=== PATIENT | male | born 1975 | race Caucasian/White ===

== ENCOUNTER 2020-05-21 14:45 | Outpatient (REF) | payer BC, SELFPAY | END 2020-05-21 14:46 | disposition home or self-care (01) | LOC: HO.LAB 14:45 | PROVIDERS: Visit Provider Internal Medicine | DX: Z20.822 Contact with and (suspected) exposure to COVID-19 (principal) | CPT/HCPCS: 36415; C9803; U0003; U0005 ==

== ENCOUNTER 2020-07-05 09:20 | Emergency (ER) | payer BC, SELFPAY ==
--- NOTE | ~2020-07-05 | US_ITS ---
EXAMINATION: US SOFT TISSUE. CLINICAL INFORMATION: Painful lump. COMPARISON: None. TECHNIQUE: Ultrasound of the right posterior head is performed with high- frequency montoya-scale imaging and color Doppler. FINDINGS: Ultrasound of the area of clinical concern, in the right posterior head, adjacent to the ear, is a relatively anechoic avascular focus measuring 1.4 x 1.7 x 0.8 cm. There is a lymph node seen in this region having a maximal transverse dimension of 1.7 cm. US/US soft tiss head and/or neck IMPRESSION: 1. Relatively anechoic avascular 1.4 x 1.7 x 0.8 cm cystic-appearing focus in the right posterior head adjacent to the ear.This is nonspecific, differential consideration includes infectious process and inflammatory process. 2. Enlarged 1.7 cm lymph node adjacent to the ear.
--- NOTE | ~2020-07-05 | CT_ITS ---
EXAMINATION: CT HEAD WITHOUT CONTRAST CLINICAL INFORMATION: Lump in the right posterior head, question mass versus abscess. COMPARISON: None TECHNIQUE: Contiguous axial imaging was performed from the skull base to vertex without intravenous administration of contrast. This CT examination was performed using dose optimization techniques as appropriate, variously including the following: *Automated exposure control *Adjustment of mA and/or kV according to patient size (this includes techniques or standardized protocols for targeted exams where dose is matched to indication/reason for exam; i.e. extremities or head) *Use of iterative reconstruction technique DLP: 740 mGy-cm FINDINGS: There is no evidence of acute intracranial hemorrhage or territorial infarction. No abnormal mass effect or midline shift is seen. Butler to white matter differentiation is well preserved. No extra-axial fluid collections are identified. The ventricles are normal in size. There is no abnormal attenuation within the brain parenchyma. The osseous structures and soft tissues are normal. The mastoid air cells and visualized portions of the paranasal sinuses are well aerated. There is a soft tissue prominence in the right posterior scalp inferiorly. There is a soft tissue density present in this region, with central area of fatty changes. Images 2:11-16. This focus measures approximately 1.4 x 1.1 x 2 cm. (Transverse, AP, craniocaudal). There is mild stranding otherwise present in this region. This focus is indeterminate on CT. Differential considerations include inflammatory, infectious process. CT/CT head/brain wo con IMPRESSION: 1. No CT evidence of acute intracranial pathology. 2. Soft tissue prominence in the right posterior scalp inferiorly, with soft tissue density and central fatty tissue, measuring approximately 1.4 x 1.1 x 2 cm. Imaging findings are nonspecific. Etiology is not determined. Differential considerations include inflammatory, infectious process. Please clinically correlate and manage.
[2020-07-05 09:31] VITALS: BP 134/88; PULSE 74; RESP 16; TEMP 36.9; O2SAT 98; BMI 30.4
--- NOTE | 2020-07-05 10:16 | ED.SKABFB ---
HPI - Skin/Abscess/Foreign Bdy General Chief complaint: Headache Stated complaint: HEADACHE Time Seen by Provider: 07/05/20 09:29 Source: patient and family () Mode of arrival: ambulatory Limitations: no limitations History of Present Illness HPI narrative: 45-year-old male presenting to the ED with complaints of a lump to the right posterior aspect of his head that developed over the past 3 days. He denies any trauma. He reports approximately 3 days ago he was having a frontal headache and was seen at the urgent care and was given Augmentin and has been taking Augmentin as prescribed for sinus infection although reports the headache has resolved and now he has a lump to the right posterior aspect of his head and despite taking the antibiotics he has no symptomatic relief of this lump. MD complaint: other (Lump) Onset (ago): day(s) (Three days worse today) Tetanus up to date: unsure Location: head Severity: moderate Quality: aching and constant Pain Consistency: constant Relieving factors: none Exacerbating factors: palpation Context: none Associated symptoms: denies other symptoms Treatments prior to arrival: other (Patient reports he has taken multiple [id number] medication and no symptomatic relief and has been taking Augmentin as prescribed and no symptomatic relief) Related Data Previous Rx's Medication Instructions Recorded amoxicillin 875 mg-potassium 1 tab PO BID #20 tab 07/02/20 clavulanate 125 mg tablet prednisone 20 mg tablet 20 mg PO .COMPLEX #18 tab 07/02/20 cephalexin 500 mg PO BID 10 Days #20 cap 07/05/20 doxycycline monohydrate 100 mg PO BID 10 Days #20 cap 07/05/20 oxycodone 5 mg PO BID PRN #10 tab 07/05/20 Allergies Allergy/AdvReac Type Severity Reaction Status Date / Time No Known Allergies Allergy Verified 07/02/20 11:34 Review of Systems Review of Systems: Constitutional : No Fever, No Chills, ENT: No ear pain, No nasal congestion, No runny nose, No sinus pain Cardiovascular : No Chest Pain, No SOB Respiratory : No Dyspnea Gastrointestinal : No abdominal pain Musculoskeletal : No Joint Swelling Skin : positive skin lump to right posterior head, No Foreign bodies, No rash, No surrounding erythema, No laceration Neuro : No Weakness, No Numbness/tingling Psych : No SI/HI/thoughts of self injury Yes all other systems are reviewed and are negative [facility]LY [facility] Past Medical History Attestation statement: The following information was validated with the patient. Social History Social History Alcohol intake: never Smoking Status: Never smoker Use of substances other than those prescribed or required for medical reasons: No Advance Directives: Yes Advance Directives Information Provided: Yes Advance Directives on File: No Physical Exam Vital Signs: Vital Signs: Last Vital Signs Temp 98.4 F 07/05/20 09:31 Pulse 74 07/05/20 09:31 Resp 16 07/05/20 09:31 BP 134/88 07/05/20 09:31 Pulse Ox 98 07/05/20 09:31 Body Mass Index 30.4 Vital signs have been reviewed as normal and appeared to be correct. Blood pressure normal. Heart rate normal. Respiration rate normal. Temperature normal. Oxygen saturation normal. Appearance: Alert. Oriented X3. No acute distress. Head: To right posterior head patient has mild soft tissue swelling and tender to palpation no erythema/foreign bodies/induration/streaking or fluctuance noted at this time. The rest of the headache exam is normal Normal. Normocephalic. Atraumatic. Able to rotate head bilaterally. Eyes: PERRLA. EOMI. No nystagmus noted. Conjunctiva and sclera normal. Eyelids normal. Corneal reflex normal. ENT: EAC normal. TM's Normal. Hearing normal. Pharynx normal. Uvula midline. tongue midline. Moist mucous membranes. No trismus noted. No drooling noted. No muffled voice noted. Neck: Normal inspection. Neck supple. FROM. No adenopathy. Thyroid Normal. No meningeal signs. No neck mass noted. CVS: Normal heart rate and rhythm. Heart sound normal. No murmurs noted. Pulses normal throughout. Respiratory: No respiratory distress. Painless inspiration. Breath sounds normal. No wheezes/rales/rhonchi noted. Chest nontender. No accessory muscle usage noted or decreased air movement noted. Back: Full range of motion noted. Skin: Skin warm and dry. Normal skin color. Normal skin turgor. No rashes/lesions/lacerations noted. Extremities: Extremities exhibit normal range of motion. Extremities nontender. Able to shrug shoulders bilaterally and keep up against resistance. Neuro: Oriented X 3. No motor deficit. No sensory deficit. Reflexes normal. Moving all extremities. No focal motor deficits. Cranial nerves II-XI intact bilaterally. Facial strength normal. Normal cognition. Speech normal. Gait normal. Strength 5/5 throughout. No pronator drift. No tremor noted. No fasciculations noted. Muscle tone normal throughout. No asterixis noted. Course Course Course Narrative: 45-year-old male presenting to the ED with atraumatic lump to the right posterior aspect of his head for the past 3 days worse today. Being treated for a sinus infection although no symptomatic relief to this lump to the back of his head is on Augmentin. Denies any other symptoms complaints or concerns. - on exam patient has soft tissue swelling to the right posterior aspect of his head no erythema noted/fluctuance or induration. - will obtain a CT scan of brain due to patient is requesting and a soft tissue ultrasound provide 100 mg of Motrin and 5 mg of oxycodone and re-evaluate. Reevaluation(s) Reevaluation #1: - CT scan of brain and ultrasound of soft tissue revealed a cystic appearing focus in the right posterior head adjacent to the ear - therefore will DC home with doxycycline and Keflex and general surgical referral. Instructions to return if any new or worsening symptoms. Patient understands agrees with this plan. Time: 12:18 MDM - Skin/Abscess/Foreign Bdy Medical Records Attestation: I reviewed the patient's medical records. Lab Data Attestation: I reviewed the patient's lab results. Labs: Lab Results 07/05/20 Range/Units 10:45 COVID-19 (ARIANE) Negative (Negative) COVID-19 Clin Com See Note Imaging Data Soft tissue ultrasound of head and neck: Attestation: I personally reviewed and interpreted this imaging study as follows: Radiologist's impression: FINDINGS: Ultrasound of the area of clinical concern, in the right posterior head, adjacent to the ear, is a relatively anechoic avascular focus measuring 1.4 x 1.7 x 0.8 cm. There is a lymph node seen in this region having a maximal transverse dimension of 1.7 cm. US/US soft tiss head and/or neck IMPRESSION: 1. Relatively anechoic avascular 1.4 x 1.7 x 0.8 cm cystic-appearing focus in the right posterior head adjacent to the ear.This is nonspecific, differential consideration includes infectious process and inflammatory process. 2. Enlarged 1.7 cm lymph node adjacent to the ear. CT scan of brain: Attestation: I personally reviewed and interpreted this imaging study as follows: Radiologist's impression: FINDINGS: There is no evidence of acute intracranial hemorrhage or territorial infarction. No abnormal mass effect or midline shift is seen. Butler to white matter differentiation is well preserved. No extra-axial fluid collections are identified. The ventricles are normal in size. There is no abnormal attenuation within the brain parenchyma. The osseous structures and soft tissues are normal. The mastoid air cells and visualized portions of the paranasal sinuses are well aerated. There is a soft tissue prominence in the right posterior scalp inferiorly. There is a soft tissue density present in this region, with central area of fatty changes. Images 2:11-16. This focus measures approximately 1.4 x 1.1 x 2 cm. (Transverse, AP, craniocaudal). There is mild stranding otherwise present in this region. This focus is indeterminate on CT. Differential considerations include inflammatory, infectious process. CT/CT head/brain wo con IMPRESSION: 1. No CT evidence of acute intracranial pathology. 2. Soft tissue prominence in the right posterior scalp inferiorly, with soft tissue density and central fatty tissue, measuring approximately 1.4 x 1.1 x 2 cm. Imaging findings are nonspecific. Etiology is not determined. Differential considerations include inflammatory, infectious process. Please clinically correlate and manage. Discharge Plan Discharge Clinical Impression: Cyst Patient Disposition: Home, Self-Care Instructions: Cyst (ED) Prescriptions: New doxycycline monohydrate 100 mg capsule 100 mg PO BID 10 Days Qty: 20 RF: 0 cephalexin 500 mg capsule 500 mg PO BID 10 Days Qty: 20 RF: 0 oxycodone 5 mg tablet 5 mg PO BID PRN (Reason: pain) Qty: 10 RF: 0 No Action prednisone 20 mg tablet 20 mg PO .COMPLEX Qty: 18 RF: 0 amoxicillin-pot clavulanate [Augmentin] 875-125 mg tablet 1 tab PO BID Qty: 20 RF: 0 Referrals: Benito Gonzalez MD [Physician] - 2 days Print Language: Gabonese
[2020-07-05] MEDS: Ibuprofen 800 MG TABLET PO (10:26)
[2020-07-05] MEDS: oxyCODONE HCl Immed Release 5 MG TABLET PO (10:26)
--- NOTE | 2020-07-05 10:35 | PC.NURSE ---
pt return from ultrasound, medicated per emar, tolerating po w/o issue. awaiting ct scan. pt given covid test per request.
[2020-07-05 11:33] LABS: COVID-19 Test Negative (Negative); IDNOW Serial# 9DD0AD1C
== END 2020-07-05 12:47 | disposition home or self-care (01) ==
PROVIDERS: Physician Assistant Medical; Emergency Provider Emergency Medicine; PCP Internal Medicine
DX: R51.9 Headache, unspecified (principal); L72.11 Pilar cyst; Z20.822 Contact with and (suspected) exposure to COVID-19
CPT/HCPCS: 36415; 70450; 76536; 87635; 99284

== ENCOUNTER 2021-02-28 20:01 | Emergency (ER) | payer MEDICAID, SELFPAY ==
--- NOTE | ~2021-02-28 | CT_ITS ---
EXAMINATION: CT HEAD WITHOUT CONTRAST CT CERVICAL SPINE WITHOUT CONTRAST CLINICAL INFORMATION: Trauma. COMPARISON: CT head 07/05/2020 TECHNIQUE: Imaging was performed from the skull base to vertex without intravenous administration of contrast. In addition, helical noncontrast CT imaging was acquired through the cervical spine and source images were reviewed along with axial reconstructions and sagittal and coronal MPRs. [This CT examination was performed using dose optimization techniques as appropriate, variously including the following: *Automated exposure control *Adjustment of mA and/or kV according to patient size (this includes techniques or standardized protocols for targeted exams where dose is matched to indication/reason for exam; i.e. extremities or head) *Use of iterative reconstruction technique] DLP: 1538 mGy-cm FINDINGS: HEAD: No intracranial mass, hemorrhage, or midline shift is visualized. The ventricles and sulci are proportional. No extra-axial collections are identified. The paranasal sinuses and mastoid air cells are well aerated. CERVICAL SPINE: There is no evidence of acute cervical spine fracture. Vertebral bodies remain normal in height. Cervical vertebrae have normal alignment. Mild degenerative lipping at the anterior endplates of the C4, C5 and C6 vertebrae. Cervical disc heights are normal. The facet joints are normal. No pre- or paravertebral soft tissue abnormality is identified. Limited assessment of the lung apices is unremarkable. CT/CT head/brain wo con IMPRESSION: 1. No acute intracranial pathology. 2. No CT evidence of acute cervical spine fracture or traumatic subluxation
--- NOTE | ~2021-02-28 | CT_ITS ---
EXAMINATION: CT CHEST, ABDOMEN AND PELVIS WITH CONTRAST. CLINICAL INFORMATION: Trauma. COMPARISON: No pertinent prior studies are available for comparison. TECHNIQUE: Multidetector volumetric imaging was performed from the thoracic inlet through the pubic symphysis following administration of 85 mL Omnipaque 350 intravenous contrast. Sagittal and coronal reformatted images were obtained on the technologist's workstation. This CT examination was performed using dose optimization techniques as appropriate, variously including the following: *Automated exposure control *Adjustment of mA and/or kV according to patient size (this includes techniques or standardized protocols for targeted exams where dose is matched to indication/reason for exam; i.e. extremities or head) *Use of iterative reconstruction technique DLP: 1046 mGy-cm FINDINGS: CHEST: Lung: There is very mild bronchial wall thickening without focal airspace opacities. There are a few micronodules of uncertain significance, for instance a tiny nodule is identified in the right upper lobe on image 203 of series 7. The central airways are patent. There is no evidence of pneumothorax or pleural effusions. Mediastinum: Normal heart size. No pericardial effusion. No mediastinal or hilar lymphadenopathy. Normal appearance of the thyroid gland. The thoracic aorta and pulmonary arteries are of normal caliber. No evidence of mediastinal hematoma. Pericardium/Pleura: No significant effusion. No pleural mass or thickening. Chest Wall/Axilla: Unremarkable. ABDOMEN/PELVIS: Peritoneal Space:No significant free air or free fluid identified. Liver, Gallbladder, Biliary Tree: There is decreased hepatic parenchymal attenuation, which is most consistent with hepatic steatosis. Otherwise, the liver is normal in size and shape without focal abnormalities. The gallbladder is unremarkable with no evidence of radiopaque gallstones, gallbladder wall thickening, or obvious pericholecystic inflammatory changes. Pancreas: Unremarkable. Spleen: Unremarkable. Adrenal Glands: Unremarkable. Kidneys and Ureters: The kidneys are normal in size, shape, and attenuation. No hydronephrosis, hydroureter, or calculi seen. No perinephric stranding. Bladder: Unremarkable. Gastrointestinal Tract: The stomach and the small bowel are nondilated. Normal appendix. No active inflammatory bowel changes. No bowel obstruction. Abdominal Wall: No significant hernia is appreciated. Lymphovascular Structures: No lymphadenopathy by size criteria. The abdominal aorta is of normal diameter.. Pelvic Viscera: Enlarged prostate. Normal appearance of the seminal vesicles. Osseus Structures: No acute osseous fractures. No suspicious focal lesions. CT/CT abdomen pelvis w con IMPRESSION: No evidence of acute traumatic sequela within the chest, abdomen or pelvis. There is very mild bronchial wall thickening in the lungs of uncertain etiology. In the appropriate clinical context, this could be related with reactive airways disease. Pulmonary micronodules of doubtful clinical significance which could be follow-up per Fleischner criteria (see below). Hepatic steatosis. 2017 Fleischner Society Recommendations for Lung Nodule(s): Multiple Solid lung nodules < 6 mm: Follow up management based on most suspicious nodule. In a low-risk patient, no routine follow-up imaging is recommended. In a high-risk patient, a non-contrast Chest CT at 12 months is optional. If performed and the nodule is stable at 12 months, no further follow-up is recommended. These guidelines do not apply to patients younger than 35 years, immunocompromised patients, and patients with cancer. F/u in patients with significant comorbidities as clinically warranted. For lung cancer screening, adhere to Lung-RADS guidelines. Reference: Radiology. 2017 [place]; 284(1):228-243
--- NOTE | ~2021-02-28 | XR_ITS ---
EXAMINATION: XR ELBOW, RIGHT CLINICAL INFORMATION: Trauma COMPARISON: None TECHNIQUE: Three views of the right elbow. FINDINGS: No fracture. No joint effusion or hemarthrosis. There is an enthesophyte at the posterior olecranon. XR/XR elbow RT 2V IMPRESSION: No acute abnormality of the elbow.
--- NOTE | ~2021-02-28 | CT_ITS ---
EXAMINATION: CT HEAD WITHOUT CONTRAST CT CERVICAL SPINE WITHOUT CONTRAST CLINICAL INFORMATION: Trauma. COMPARISON: CT head 07/05/2020 TECHNIQUE: Imaging was performed from the skull base to vertex without intravenous administration of contrast. In addition, helical noncontrast CT imaging was acquired through the cervical spine and source images were reviewed along with axial reconstructions and sagittal and coronal MPRs. [This CT examination was performed using dose optimization techniques as appropriate, variously including the following: *Automated exposure control *Adjustment of mA and/or kV according to patient size (this includes techniques or standardized protocols for targeted exams where dose is matched to indication/reason for exam; i.e. extremities or head) *Use of iterative reconstruction technique] DLP: 1538 mGy-cm FINDINGS: HEAD: No intracranial mass, hemorrhage, or midline shift is visualized. The ventricles and sulci are proportional. No extra-axial collections are identified. The paranasal sinuses and mastoid air cells are well aerated. CERVICAL SPINE: There is no evidence of acute cervical spine fracture. Vertebral bodies remain normal in height. Cervical vertebrae have normal alignment. Mild degenerative lipping at the anterior endplates of the C4, C5 and C6 vertebrae. Cervical disc heights are normal. The facet joints are normal. No pre- or paravertebral soft tissue abnormality is identified. Limited assessment of the lung apices is unremarkable. CT/CT cervical spine wo con IMPRESSION: 1. No acute intracranial pathology. 2. No CT evidence of acute cervical spine fracture or traumatic subluxation
[2021-02-28 20:11] VITALS: BP 144/91; PULSE 91; RESP 18; TEMP 36.6; O2SAT 98; BMI 30.4
--- NOTE | 2021-02-28 20:20 | PC.NURSE ---
PATIENT BROUGHT FROM TRIAGE TO ROOM 4. PATIENT REPORTS FALLING OFF THE BACK OF THE LOADING AREA OF A TRACTOR TRAILER ABOUT 8 FEET. PATIENT REPORTS HAPPENING IN [place] AND DRIVING HERE FOR EVALUATION. PATIENT DROVE HIMSELF. STATING MOVING IS DIFFICULT BECAUSE OF THE PAIN. PATIENT PLACED IN A C-COLLAR IN TRIAGE. CLOTHING CUT OFF IN ROOM, PATIENT AGREEABLE TO THROWING AWAY CUT SWEATSHIRT AND T-SHIRT. PATIENT STATING HAVING FEELING IN BILATERAL LOWER EXTREMITIES PATIENT ABLE TO STAND AND WALK TO THE STRETCHER WITH ASSISTANCE, ABLE TO BEAR WEIGHT LIFT LEGS. PATIENT SITTING DOWN AND REPORTING INCREASED PAIN TO LOWER BACK. MD EVALUATING PATIENT, POINT TENDERNESS TO LOWER SPINE. PATIENT DENIES NUMBNESS OR WEAKNESS TO EXTREMITIES, ONLY PAIN WORSENING WITH MOVEMENT. PATIENT ENRRIQUE HITTING HEAD, DENIES LOC, REMEMBERS THE INCIDENT AND WAS ABLE TO DRIVE HOME FROM [place]. FAMILY MEMBER AT BEDSIDE. PATIENT PLACED ON MONITOR. IV ACCESS AND LABS OBTAINED.
--- NOTE | 2021-02-28 20:25 | ED.FALL ---
HPI - Fall General Chief Complaint: Fall Stated Complaint: left leg unable to move fell off tractor Time Seen by Provider: 02/28/21 20:21 History of Present Illness HPI Narrative: Patient is a 45-year-old male previously well no significant past medical history denies any alcohol abuse. 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 Patient slid down from his tractor trailer hitting his back. On to the ground. Hitting the back of his head. Hitting his lower back. Patient complaining of pain to the left lower extremity when he moves. Patient denies any bowel or urinary incontinence. Denies any loss of consciousness. Patient is from home. No history of diabetes, hypertension, mi. Not on any blood thinners. No recreational drug use. No alcohol. Patient's accident happened about 2 hours ago in [place]. Subsequently patient was able to drive to [place]. Subsequently his told him he has to come to the hospital. Related Data Previous Rx's Medication Instructions Recorded amoxicillin 875 mg-potassium 1 tab PO BID #20 tab 07/02/20 clavulanate 125 mg tablet (Augmentin) prednisone 20 mg tablet 20 mg PO .COMPLEX #18 tab 07/02/20 cephalexin 500 mg capsule 500 mg PO BID 10 Days #20 cap 07/05/20 doxycycline monohydrate 100 mg 100 mg PO BID 10 Days #20 cap 07/05/20 capsule oxycodone 5 mg tablet 5 mg PO BID PRN #10 tab 07/05/20 Allergies Allergy/AdvReac Type Severity Reaction Status Date / Time No Known Allergies Allergy Verified 07/02/20 11:34 Review of Systems Review of Systems: Positive back pain No bowel urinary incontinence No focal weakness All system reviewed otherwise negative [facility] Past Medical History Attestation statement: The following information was validated with the patient. Social History Social History Alcohol intake: never Advance Directives: No Advance Directives Information Provided: Yes Physical Exam Vital Signs: Vital Signs: Last Vital Signs Temp 98 F 02/28/21 20:11 Pulse 82 02/28/21 20:40 Resp 14 02/28/21 20:42 BP 154/93 H 02/28/21 20:40 Pulse Ox 98 02/28/21 20:40 BMI result Body Mass Index 30.4 Appearance: Alert. Oriented X3. Complaining of back pain. Eyes: Pupils equal, round and reactive to light. ENT: Pharynx normal. There is no mastoid tenderness. No hemotympanum. No midface tenderness. No gross trauma to the scalp. No malocclusion noted. Neck: Normal inspection. Trachea is midline there is no point tenderness palpation of the C-spine. C-spine was immobilized secondary to distracting injury No crepitus CVS: Normal heart rate and rhythm. Pulses normal. Normal S1 and S2 Respiratory: No respiratory distress. Breath sounds normal. No Wheezing. No rales. There is no crepitus on palpation nontender to touch Abdomen: Soft and nontender. No rigidity. No distention. good BS x4 Skin: Skin warm and dry. Normal skin color. Normal skin turgor. Extremities: No lower extremity edema. Neurovascular intact to all extremities. Positive abrasion noted to the right elbow. Range of motion intact. Distal sensation intact. Pulses 2+ at radial. Movement hand intact. No Rash Neuro: Oriented X 3. No motor deficit. No sensory deficit. Moving all extermities. No slurred speech MDM - Fall MDM Narrative Medical decision making narrative: Status post fall from the back of a tractor trailer. Patient claims approximately 8 ft. There was no loss of consciousness. There is pain radiating down the left leg. Patient did not have any bowel urinary incontinence. CT scan is pending. Patient's labs appears unremarkable. Currently in stable condition. Additional x-rays also pending. Lab Data Result diagrams: 02/28/21 20:31 02/28/21 20:31 Labs: Lab Results 02/28/21 02/28/21 02/28/21 Range/Units 20:31 20:31 20:31 WBC 8.7 (4.8-10.8) X10*3/uL RBC 4.81 (4.60-5.80) X10*6/uL Hgb 15.5 (14.0-18.0) g/dl Hct 43.8 (42.0-52.0) % MCV 91.1 (80.0-98.0) fL MCH 32.2 (27.0-33.0) pg MCHC 35.4 (31.0-36.0) g/dl RDW 12.0 (11.0-16.0) % Plt Count 206 (160-400) X10*3/uL MPV 8.7 L (9.4-12.4) fL Immature Gran % (Auto) 0.3 (0.0-0.4) % Neut % (Auto) 70.6 (45-73) % Lymph % (Auto) 23.1 (20-40) % [place] % (Auto) 5.0 (2-11) % Eos % (Auto) 0.8 (0-4) % Baso % (Auto) 0.2 (0-2) % Lymph # (Auto) 2.0 (1.2-4.9) X10*3/uL [place] # (Auto) 0.4 (0.1-1.2) X10*3/uL Eos # (Auto) 0.1 (0.0-0.4) X10*3/uL Baso # (Auto) 0.0 (0.0-0.2) X10*3/uL Abs Immat Gran (auto) 0.03 (0.00-0.03) X10*3/uL Absolute Neuts (auto) 6.2 (2.0-8.3) x10*3/uL Absolute Nucleated RBC 0.000 (0.0-0.012) X10*3/uL Nucleated RBC % (auto) 0.0 (0.0-0.2) /100WBC Sodium 141 (135-145) mmol/L Potassium 3.5 (3.3-5.1) mmol/L Chloride 107 (96-108) mmol/L Carbon Dioxide 26 (22-29) mmol/L Anion Gap 12 (12-20) BUN 11 (9-16) mg/dL Creatinine 1.02 (0.5-1.4) mg/dL Estim Creat Clear Calc 101.0 Estimated GFR > 60 Random Glucose 111 (60-115) mg/dL Calcium 9.4 (8.4-10.2) mg/dL Total Bilirubin 2.0 H (0.0-1.0) mg/dL Direct Bilirubin 0.6 H (0.0-0.5) mg/dL AST 37 (5-37) U/L ALT 60 H (0-40) U/L Alkaline Phosphatase 67 (39-117) U/L Total Protein 7.3 (6.5-8.0) g/dL Albumin 4.6 (3.5-5.0) g/dL Lipase 22 (8-78) U/L Ethyl Alcohol < 10 mg/dL Discharge Plan Discharge Clinical Impression: Head injury, Fall, Back pain Prescriptions: No Action doxycycline monohydrate 100 mg capsule 100 mg PO BID 10 Days Qty: 20 RF: 0 cephalexin 500 mg capsule 500 mg PO BID 10 Days Qty: 20 RF: 0 oxycodone 5 mg tablet 5 mg PO BID PRN (Reason: pain) Qty: 10 RF: 0 prednisone 20 mg tablet 20 mg PO .COMPLEX Qty: 18 RF: 0 amoxicillin-pot clavulanate [Augmentin] 875-125 mg tablet 1 tab PO BID Qty: 20 RF: 0
[2021-02-28 20:37] LABS: Basophils Percent Auto 0.2 % (0-2); Eosinophils Absolute Auto 0.1 X10*3/uL (0.0-0.4); Eosinophils Percent Auto 0.8 % (0-4); Hematocrit 43.8 % (42.0-52.0); Hemoglobin 15.5 g/dl (14.0-18.0); Imm Gran Abs Auto 0.03 X10*3/uL (0.00-0.03); Imm Gran Pct Auto 0.3 % (0.0-0.4); Lymphocytes Percent Auto 23.1 % (20-40); MANUAL DIFF FLAG NO; Mean Corpuscular HGB Conc 35.4 g/dl (31.0-36.0); Mean Corpuscular Hemoglobin 32.2 pg (27.0-33.0); Mean Corpuscular Volume 91.1 fL (80.0-98.0); Mean Platelet Volume 8.7 fL (9.4-12.4); Monocytes Absolute Auto 0.4 X10*3/uL (0.1-1.2); Neutrophils Absolute Auto 6.2 x10*3/uL (2.0-8.3); Neutrophils Percent Auto 70.6 % (45-73); Platelet Count 206 X10*3/uL (160-400); Red Blood Count 4.81 X10*6/uL (4.60-5.80); White Blood Count 8.7 X10*3/uL (4.8-10.8)
[2021-02-28 20:40] VITALS: BP 154/93; PULSE 82; RESP 14; O2SAT 98
[2021-02-28 20:42] VITALS: RESP 14
[2021-02-28] MEDS: HYDROmorphone HCl 0.5 MG/0.5 ML SYRINGE IVPUSH (20:42)
[2021-02-28] MEDS: Diphth,Pertus(ACell),Tet Adult 0.5 ML SYRINGE IM (20:44)
[2021-02-28 20:51] LABS: Ethanol < 10 mg/dL
[2021-02-28 20:53] LABS: Alanine Aminotransferase 60 U/L (0-40); Albumin Level 4.6 g/dL (3.5-5.0); Alkaline Phosphatase 67 U/L (39-117); Anion Gap 12 (12-20); Aspartate Amino Transferase 37 U/L (5-37); Bilirubin Direct 0.6 mg/dL (0.0-0.5); Blood Urea Nitrogen 11 mg/dL (9-16); Calcium 9.4 mg/dL (8.4-10.2); Carbon Dioxide 26 mmol/L (22-29); Chloride 107 mmol/L (96-108); Estimated Glomerular Filt Rate > 60; Glucose Random 111 mg/dL (60-115); Lipase 22 U/L (8-78); Potassium 3.5 mmol/L (3.3-5.1); Sodium 141 mmol/L (135-145); Total Protein 7.3 g/dL (6.5-8.0)
[2021-02-28] MEDS: iohexoL 350 MG/ML 100 ML INFUS..BTL IV (21:24)
--- NOTE | 2021-02-28 21:24 | PC.NURSE ---
When this RN to bedside to medicate per MAY and document VS, pt aaox4 resting supine in ccollar on stretcher. Pt RR even and unlabored, equal chest rise and fall bilaterally, no signs of flail chest/paradoxical movement noted. Pt c/o pain to RUE, midline cervical spine, and LLE. Pt with +CMS to all extremities, but movement of LLE is significantly impaired which pt reports is 2/2 severe pain. After medication for pain, pt reports it's doing its job, and is freely moving RUE. LLE improved as well. Pt to ED CT without incidence, cspine precuations maintained. Pt returned to ED 4, R elbow XR obtained. Pt awaiting imaging results. Pt remains on bedside management assistant. Stretcher in lowest locked position, supine, rails raised, call rocha within reach. Pt's at bedside.
[2021-02-28 22:00] VITALS: BP 137/88; PULSE 74; RESP 12; O2SAT 98
[2021-02-28] MEDS: Morphine Sulfate Immed Release 15 MG TABLET PO (22:45)
[2021-02-28] MEDS: diazePAM 5 MG TABLET PO (22:46)
--- NOTE | 2021-02-28 23:49 | PC.NURSE ---
Pt able to ambulate with standby assist, reports sudden movements cause low back to spasm but pt continues with steady gait. Pt able to sit back on stretcher and lift BLE into stretcher without assistance. Pt aware and agreeable to plan for DC with recommendation to f/u with PT if pt's pain/altered gait persists.
[2021-02-28 23:51] VITALS: BP 122/75; PULSE 74; RESP 12; O2SAT 97
[2021-03-01] LABS: Appearance Urine CLEAR; Color Urine YELLOW; Glucose Urine UA NEG (NEG); Leukocyte Esterase Urine NEG (NEG); Nitrite Urine NEG (NEG); PH 6.5 (5.0-8.0); Urine Blood NEG (NEG); Urine Ketones 15 MG/DL (NEG); Urine Protein NEG (NEG-TRACE)
[2021-03-01 00:32] LABS: Amphetamine Screen Urine Not Detected (Not Detect); Barbiturates, Urine Not Detected (Not Detect); Benzodiazepines Screen Urine Not Detected (Not Detect); Cannabinoid Screen Urine Not Detected (Not Detect); Cocaine Screen Urine Not Detected (Not Detect); Fentanyl, urine Not Detected (Not Detect); Opiate Screen Urine Not Detected (Not Detect); Phencyclidine Screen Urine Not Detected (Not Detect)
[2021-03-01 00:38] LABS: WBC Urine 0-2 /HPF (0-4)
[2021-03-01 00:39] LABS: RBC Urine 0-2 /HPF (0); Squamous Epithelial Cell Urine TRACE /LPF
== END 2021-03-01 00:14 | disposition home or self-care (01) ==
PROVIDERS: Emergency Medicine Emergency Medical Services; Emergency Provider Emergency Medicine
DX: S09.90XA Unspecified injury of head, initial encounter (principal); M54.50 Low back pain, unspecified; W17.89XA Other fall from one level to another, initial encounter; Y93.9 Activity, unspecified; Y92.9 Unspecified place or not applicable; Y99.9 Unspecified external cause status
CPT/HCPCS: 36415; 70450; 71260; 72125; 73070; 74177; 80048; 80076; 80307; 81001; 82077; 83690; 85025; 90471; 90715; 96374; 99284; J1170; Q9967

== ENCOUNTER 2021-06-12 16:15 | Emergency (ER) | payer MEDICAID, SELFPAY ==
--- NOTE | ~2021-06-12 | XR_ITS ---
EXAMINATION: XR CHEST CLINICAL INFORMATION: Chest pain. Cough. COMPARISON: 01/18/2010 TECHNIQUE: PA and lateral views of the chest were obtained. FINDINGS: Lungs are clear. No consolidation, pneumothorax, or pleural effusion. Cardiac and mediastinal contours are normal. Pulmonary vasculature is unremarkable. Trachea is midline. Osseous structures are unremarkable. XR/XR chest 2V IMPRESSION: Normal chest radiographs.
--- NOTE | 2021-06-12 17:11 | ECG_ITS ---
Test Reason : CHEST PAIN Blood Pressure : / mmHG Vent. Rate : 081 BPM Atrial Rate : 081 BPM P-R Int : 148 ms QRS Dur : 088 ms QT Int : 350 ms P-R-T Axes : 022 -20 007 degrees QTc Int : 406 ms Normal sinus rhythm Minimal voltage criteria for LVH, may be normal variant ( R in aVL ) Borderline ECG No previous ECGs available Referred By: Jazmine Machado Electronically Signed By:TRISTAN COTE
[2021-06-12 17:19] VITALS: BP 143/103; PULSE 85; RESP 16; TEMP 36.6; O2SAT 97; BMI 31.3
[2021-06-12 19:23] VITALS: BP 161/101; PULSE 74; RESP 16; TEMP 36.7; O2SAT 98
--- NOTE | 2021-06-12 19:28 | ED_ITS ---
HPI - Chest Pain General Chief Complaint: Chest Pain Stated Complaint: chest pain,coughing Time Seen by Provider: 06/12/21 17:27 Source: patient Mode of arrival: ambulatory Limitations: no limitations History of Present Illness HPI narrative: This is a 45-year-old male with no significant medical history presenting to the emergency department with left-sided chest pain x3 days he tells me there is some associated shortness of breath, worse with exertion. He tells me that the pain does not radiate and it is a stabbing severe pain that happens intermittently. He tells me at times the pain is worse with movement and better at rest. He tells me if he moves his left arm up his left anterior chest wall hurts. He does not recall doing any heavy lifting or abnormal movements. 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 He also tells me that the pain is so bad that he becomes very diaphoretic from time to time. He denies fevers, chills, nausea, vomiting, abdominal pain, headache, dizziness, vision changes. No cardiac history or family cardiac history. This is never happened to him in the past. MD complaint: chest pain Onset (ago): day(s) (3) Timing of current episode: episodic Prior episodes: No Onset: during rest Pain location: left chest Pain radiation: none Severity: severe Pain scale (0-10): 10 Quality: sharp Relieving factors: nothing Exacerbating factors: movement Associated symptoms: diaphoresis Treatment prior to arrival: none Related Data Previous Rx's Medication Instructions Recorded amoxicillin 875 mg-potassium 1 tab PO BID #20 tab 07/02/20 clavulanate 125 mg tablet (Augmentin) prednisone 20 mg tablet 20 mg PO .COMPLEX #18 tab 07/02/20 cephalexin 500 mg capsule 500 mg PO BID 10 Days #20 cap 07/05/20 doxycycline monohydrate 100 mg 100 mg PO BID 10 Days #20 cap 07/05/20 capsule oxycodone 5 mg tablet 5 mg PO BID PRN #10 tab 07/05/20 diazepam 5 mg tablet (Valium) 5 mg PO TID PRN #12 tab 03/01/21 ibuprofen 600 mg tablet 600 mg PO Q6H PRN #30 tab 03/01/21 lidocaine 4 % topical patch 1 patch TOPICAL DAILY PRN #10 ea 03/01/21 morphine 15 mg immediate release 15 mg PO Q6H PRN 3 Days #12 tab 03/01/21 tablet cyclobenzaprine 10 mg tablet 10 mg PO BEDTIME PRN #7 tab 06/12/21 naproxen 500 mg tablet 500 mg PO BID PRN #14 tab 06/12/21 Allergies Allergy/AdvReac Type Severity Reaction Status Date / Time No Known Allergies Allergy Verified 07/02/20 11:34 Review of Systems Review of Systems: Constitutional : No Weight loss, No Fever, No Chills, No Fatigue, No Malaise ENT/Mouth : No sore throat, No Rhinorrhea Eyes: No Eye Pain, No Swelling, No Redness Cardiovascular : + Chest Pain, No SOB, + Dyspnea on Exertion, No Orthopnea, No Edema, No Palpitations Respiratory : No Cough, No Sputum, No Wheezing Gastrointestinal : No Nausea, No Vomiting, No Diarrhea, No Constipation, No abdominal Pain, No Hematochezia, No Melena Genitourinary : No Dysuria, No Urinary Frequency, No Hematuria, Musculoskeletal : No joint pain, No Myalgias, No Joint Swelling Skin : No Skin Lesions, No rash Neuro : No Weakness, No Numbness, No Dizziness, No Headache Psych : No Anxiety/Panic, No Depression All other systems reviewed and are negative Yes all other systems are reviewed and are negative [facility] Past Medical History Attestation statement: The following information was validated with the patient. Source: old records reviewed and nursing notes reviewed Social History Social History Alcohol intake: never Advance Directives: No Physical Exam Vital Signs: Vital Signs: Last Vital Signs Temp 98.1 F 06/12/21 19:23 Pulse 74 06/12/21 19:23 Resp 16 06/12/21 19:23 BP 161/101 H 06/12/21 19:23 Pulse Ox 98 06/12/21 19:23 BMI result Body Mass Index 31.3 Vital signs stable noted to be slightly hypertensive likely to pain however will recheck. Appearance: Alert.? Oriented X3.? No acute distress.? Head: Normocephalic, atraumatic, no step-offs or deformities Eyes: Pupils equal, round and reactive to light.? ENT: Pharynx normal.? Neck: Normal inspection.? Neck supple.? CVS: Normal heart rate and rhythm.? Pulses normal.?+ pain with palpation of left anterior chest wall. No overlying skin changes. Respiratory: No respiratory distress.? Breath sounds normal.? Abdomen: Soft and nontender.? Skin: Skin warm and dry.? Normal skin color.? Normal skin turgor.? Extremities: No lower extremity edema.? No calf ttp, negative Caesar bilaterally 5/5 strength to bilateral upper and lower extremities Back: No midline tenderness, no C-spine tenderness, full range of motion, no CVA tenderness bilaterally Neuro: Oriented X 3.? No motor deficit.? No sensory deficit. CN 2-12 intact Course Reevaluation(s) Reevaluation #1: CBC within normal limits. Chemistry within normal limits. Troponin negative, EKG nonischemic unlikely ACS. D-dimer negative unlikely that this is a PE/DVT. COVID negtative. Patient did also have a negative Caesar sign bilaterally. Chest x-ray negative no signs of pneumonia. Chest pain is reproducible. At this time I suspect that this is musculoskeletal in nature a likely costochondritis. Patient will be discharged home advised to follow-up with Cardiology. Also advised him to return with new or worsening symptoms. Time: 20:15 MDM - Chest Pain MDM Narrative Medical decision making narrative: 1928 45 yo m no pmhx presents to the emergency department with 3 days of left anteri or chest wall pain and associated shortness of breath worse with ambulation. Denies recent trauma to the area. Physical examination significant for pain with palpation to left anterior chest wall. No other abnormalities on exam. Negative Caesar bilaterally. Seeing as though the pain is reproducible this is likely musculoskeletal however ACS will be ruled out. Patient does have a job that is sedentary therefore a PE will be ruled out by doing a D-dimer. He did have a negative Caesar sign kaya aterally. History and physical not consistent with aortic dissection. Plan at this time is basic labs, EKG, imaging. Patient tells me he feels like his chest is slightly tight when breathing will t ry an albuterol treatment. Medical Records Data Attestation: I reviewed the patient's medical records. Lab Data Attestation: I reviewed the patient's lab results. Result diagrams: 06/12/21 19:37 06/12/21 19:37 Labs: Lab Results 06/12/21 06/12/21 06/12/21 Range/Units 19:37 19:37 19:37 WBC 5.9 (4.8-10.8) X10*3/uL RBC 4.90 (4.60-5.80) X10*6/uL Hgb 15.9 (14.0-18.0) g/dl Hct 45.2 (42.0-52.0) % MCV 92.2 (80.0-98.0) fL MCH 32.4 (27.0-33.0) pg MCHC 35.2 (31.0-36.0) g/dl RDW 12.2 (11.0-16.0) % Plt Count 243 (160-400) X10*3/uL MPV 8.6 L (9.4-12.4) fL Immature Gran % (Auto) 0.3 (0.0-0.4) % Neut % (Auto) 58.4 (45-73) % Lymph % (Auto) 33.3 (20-40) % Eaton % (Auto) 6.6 (2-11) % Eos % (Auto) 1.2 (0-4) % Baso % (Auto) 0.2 (0-2) % Lymph # (Auto) 2.0 (1.2-4.9) X10*3/uL Eaton # (Auto) 0.4 (0.1-1.2) X10*3/uL Eos # (Auto) 0.1 (0.0-0.4) X10*3/uL Baso # (Auto) 0.0 (0.0-0.2) X10*3/uL Abs Immat Gran (auto) 0.02 (0.00-0.03) X10*3/uL Absolute Neuts (auto) 3.5 (2.0-8.3) x10*3/uL Absolute Nucleated RBC 0.000 (0.0-0.012) X10*3/uL Nucleated RBC % (auto) 0.0 (0.0-0.2) /100WBC D-Dimer High Sensitivty NG/ML Sodium 140 (135-145) mmol/L Potassium 3.7 (3.3-5.1) mmol/L Chloride 106 (96-108) mmol/L Carbon Dioxide 26 (22-29) mmol/L Anion Gap 12 (12-20) BUN 11 (9-16) mg/dL Creatinine 0.99 (0.5-1.4) mg/dL Estim Creat Clear Calc 102.2 Estimated GFR > 60 Random Glucose 103 (60-115) mg/dL Calcium 9.4 (8.4-10.2) mg/dL Troponin I High Sens < 3.5 (<3.5-35.0) ng/L COVID-19 (ARIANE) (Negative) COVID-19 Clin Com 06/12/21 06/12/21 Range/Units 19:37 19:37 WBC (4.8-10.8) X10*3/uL RBC (4.60-5.80) X10*6/uL Hgb (14.0-18.0) g/dl Hct (42.0-52.0) % MCV (80.0-98.0) fL MCH (27.0-33.0) pg MCHC (31.0-36.0) g/dl RDW (11.0-16.0) % Plt Count (160-400) X10*3/uL MPV (9.4-12.4) fL Immature Gran % (Auto) (0.0-0.4) % Neut % (Auto) (45-73) % Lymph % (Auto) (20-40) % Eaton % (Auto) (2-11) % Eos % (Auto) (0-4) % Baso % (Auto) (0-2) % Lymph # (Auto) (1.2-4.9) X10*3/uL Eaton # (Auto) (0.1-1.2) X10*3/uL Eos # (Auto) (0.0-0.4) X10*3/uL Baso # (Auto) (0.0-0.2) X10*3/uL Abs Immat Gran (auto) (0.00-0.03) X10*3/uL Absolute Neuts (auto) (2.0-8.3) x10*3/uL Absolute Nucleated RBC (0.0-0.012) X10*3/uL Nucleated RBC % (auto) (0.0-0.2) /100WBC D-Dimer High Sensitivty < 150 NG/ML Sodium (135-145) mmol/L Potassium (3.3-5.1) mmol/L Chloride (96-108) mmol/L Carbon Dioxide (22-29) mmol/L Anion Gap (12-20) BUN (9-16) mg/dL Creatinine (0.5-1.4) mg/dL Estim Creat Clear Calc Estimated GFR Random Glucose (60-115) mg/dL Calcium (8.4-10.2) mg/dL Troponin I High Sens (<3.5-35.0) ng/L COVID-19 (ARIANE) Negative (Negative) COVID-19 Clin Com See Note ECG Data ECG #1: Attestation: I personally reviewed and interpreted this ECG as follows: ECG interpretation date: 06/12/21 ECG interpretation time: 19:32 Prior ECG tracings: available for review Interpretation: Ventricular rate 81, SC normal, QRS normal, QT/QTC normal. EKG shows normal sinus rhythm. No ST elevations or inversions concerning for ischemia. No previous to compare with. Critical Care Time Critical Care Time Critical Care Time: No Discharge Plan Discharge Clinical Impression: Acute chest wall pain, Costochondritis Patient Disposition: Home, Self-Care Instructions: Costochondritis (ED), Chest Wall Pain (ED) Additional Instructions: Take your medications as prescribed. If you were prescribed antibiotics today, it is important that you take your medication to their entirety, do not skip any doses, do not finish them early. Follow-up with your primary care provider this week. Return to the emergency department with new or worsening symptoms. Such as fevers, chills, chest pain, shortness of breath, nausea, vomiting, dizziness, headache, vision changes, lethargy In case of emergency call 911 Prescriptions were sent to [facility] on [facility] in [place]. Prescriptions: New cyclobenzaprine 10 mg tablet 10 mg PO BEDTIME PRN (Reason: muscle spasm) Qty: 7 0RF naproxen 500 mg tablet 500 mg PO BID PRN (Reason: pain) Qty: 14 0RF Rx Instructions: Take with food No Action doxycycline monohydrate 100 mg capsule 100 mg PO BID 10 Days Qty: 20 0RF cephalexin 500 mg capsule 500 mg PO BID 10 Days Qty: 20 0RF oxycodone 5 mg tablet 5 mg PO BID PRN (Reason: pain) Qty: 10 0RF lidocaine 4 % adhesive patch,medicated 1 patch topical DAILY PRN (Reason: pain) Qty: 10 0RF Rx Instructions: may leave on for up to 12 hrs ibuprofen 600 mg tablet 600 mg PO Q6H PRN (Reason: pain) Qty: 30 0RF morphine 15 mg tablet 15 mg PO Q6H PRN (Reason: pain) 3 Days Qty: 12 0RF diazepam [Valium] 5 mg tablet 5 mg PO TID PRN (Reason: muscle spasm) Qty: 12 0RF prednisone 20 mg tablet 20 mg PO .COMPLEX Qty: 18 0RF Rx Instructions: 20 mg PO 3 p.o. daily for 3 days followed by 2 p.o. daily for 3 days followed by 1 p.o. daily for 3 days; amoxicillin-pot clavulanate [Augmentin] 875-125 mg tablet 1 tab PO BID Qty: 20 0RF Referrals: Declan Howell MD [Primary Care Provider] - 2 days Rush Jensen MD [Physician] - 1 week Stand Alone Forms: Work/School Release
[2021-06-12] MEDS: Albuterol Sulfate (0.083%) 2.5 MG/3 ML VIAL.NEB 5 MG INHALE (19:40)
[2021-06-12 19:41] LABS: MANUAL DIFF FLAG NO
[2021-06-12] MEDS: Ketorolac Tromethamine 15 MG/ML VIAL 30 MG IVPUSH (19:41)
[2021-06-12 19:52] LABS: Basophils Percent Auto 0.2 % (0-2); Eosinophils Absolute Auto 0.1 X10*3/uL (0.0-0.4); Eosinophils Percent Auto 1.2 % (0-4); Hematocrit 45.2 % (42.0-52.0); Hemoglobin 15.9 g/dl (14.0-18.0); Imm Gran Abs Auto 0.02 X10*3/uL (0.00-0.03); Imm Gran Pct Auto 0.3 % (0.0-0.4); Lymphocytes Percent Auto 33.3 % (20-40); Mean Corpuscular HGB Conc 35.2 g/dl (31.0-36.0); Mean Corpuscular Hemoglobin 32.4 pg (27.0-33.0); Mean Corpuscular Volume 92.2 fL (80.0-98.0); Mean Platelet Volume 8.6 fL (9.4-12.4); Monocytes Absolute Auto 0.4 X10*3/uL (0.1-1.2); Monocytes Percent Auto 6.6 % (2-11); Neutrophils Absolute Auto 3.5 x10*3/uL (2.0-8.3); Neutrophils Percent Auto 58.4 % (45-73); Platelet Count 243 X10*3/uL (160-400); Red Cell Distribution Width 12.2 % (11.0-16.0); White Blood Count 5.9 X10*3/uL (4.8-10.8)
[2021-06-12 19:59] LABS: Anion Gap 12 (12-20); Blood Urea Nitrogen 11 mg/dL (9-16); COVID-19 Test Negative (Negative); Calcium 9.4 mg/dL (8.4-10.2); Carbon Dioxide 26 mmol/L (22-29); Chloride 106 mmol/L (96-108); Creatinine Clr Calc Pharmacy 102.2; Estimated Glomerular Filt Rate > 60; Glucose Random 103 mg/dL (60-115); IDNOW Serial# 55D5AD1C; Potassium 3.7 mmol/L (3.3-5.1); Sodium 140 mmol/L (135-145)
[2021-06-12 20:05] LABS: Troponin-I High Sensitivity < 3.5 ng/L (<3.5-35.0)
[2021-06-12 20:06] LABS: D Dimer High Sensitivity < 150 NG/ML
[2021-06-12 20:23] VITALS: BP 149/92; PULSE 89; RESP 16; O2SAT 98
[2021-06-12 20:25] VITALS: BP 149/92; RESP 18
--- NOTE | 2021-06-12 20:27 | ECG_ITS ---
Test Reason : cp Blood Pressure : / mmHG Vent. Rate : 083 BPM Atrial Rate : 083 BPM P-R Int : 158 ms QRS Dur : 092 ms QT Int : 360 ms P-R-T Axes : 020 -17 002 degrees QTc Int : 423 ms Normal sinus rhythm with sinus arrhythmia Minimal voltage criteria for LVH, may be normal variant ( R in aVL ) Borderline ECG When compared with ECG of 12-JUN-2021 17:10, No significant change was found Referred By: Jazmine Machado Electronically Signed By:TRISTAN COTE
[2021-06-12] MEDS: Cyclobenzaprine HCl 10 MG TABLET PO (20:35)
[2021-06-12 21:16] LABS: Troponin-I High Sensitivity < 3.5 ng/L (<3.5-35.0)
== END 2021-06-12 21:49 | disposition home or self-care (01) ==
PROVIDERS: Physician Assistant; Emergency Provider Emergency Medicine; PCP Internal Medicine
DX: M94.0 Chondrocostal junction syndrome [Tietze] (principal); R07.89 Other chest pain; R05.9 Cough, unspecified; M79.602 Pain in left arm; Z20.822 Contact with and (suspected) exposure to COVID-19; Z79.899 Other long term (current) drug therapy
CPT/HCPCS: 36415; 71046; 80048; 84484; 85025; 85379; 87635; 93005; 96374; 99284; J1885

== ENCOUNTER 2023-05-02 18:24 | Emergency (ER) | payer MEDICAID, SELFPAY ==
--- NOTE | ~2023-05-02 | XR_ITS ---
EXAMINATION: CHEST 2 VIEWS CLINICAL INFORMATION: shortness of breath, chest pain. COMPARISON: 06/12/2021. TECHNIQUE: PA and lateral views of the chest obtained. FINDINGS: The lungs are hypoexpanded with minimal dependent basilar atelectasis. No focal infiltrate, effusion, edema, or pneumothorax. Cardiac and mediastinal silhouettes are within normal limits for technique. No acute bony abnormality seen XR/XR chest 2V IMPRESSION: Hypoexpanded with minimal basilar atelectasis but no acute process seen otherwise.
--- NOTE | 2023-05-02 18:29 | ECG_ITS ---
Test Reason : chest pain Blood Pressure : / mmHG Vent. Rate : 085 BPM Atrial Rate : 085 BPM P-R Int : 144 ms QRS Dur : 092 ms QT Int : 360 ms P-R-T Axes : 021 -18 014 degrees QTc Int : 428 ms Normal sinus rhythm Incomplete right bundle branch block Minimal voltage criteria for LVH, may be normal variant ( R in aVL ) Borderline ECG When compared with ECG of 12-JUN-2021 20:28, No significant change was found Referred By: Valarie Montero Electronically Signed By:ALISA PINTO MD
[2023-05-02 18:46] VITALS: BP 149/94; PULSE 85; RESP 20; TEMP 37.1; O2SAT 94; BMI 33.5
--- NOTE | 2023-05-02 18:46 | ED_ITS ---
HPI - General Adult General Chief complaint: Chest Pain Stated complaint: chest pain Time Seen by Provider: 05/02/23 21:06 Source: patient and family Mode of arrival: ambulatory Limitations: no limitations History of Present Illness HPI narrative: 47 yo male health here with c/o congestion in nose that is making it hard for him to sleep and breathe at night he has mucous in back of throat and wakes up choking. He tried an OTC spray in his nose one time that helped. He has no known allergies. He had some atypical chest pain on left side not related to exertion. He has no pain now. No fevers MD complaint: sinus symptoms Onset (ago): week(s) (2) Location: face Radiation: non-radiation Severity: moderate Relieving factors: other (OTC sinus med) Exacerbating factors: none Associated symptoms: shortness of breath (at night) Treatments prior to arrival: none Related Data Previous Rx's Medication Instructions Recorded amoxicillin 875 mg-potassium 1 tab PO BID #20 tabs 07/02/20 clavulanate 125 mg tablet (Augmentin) prednisone 20 mg tablet 20 mg PO .COMPLEX #18 tabs 07/02/20 cephalexin 500 mg capsule 500 mg PO BID 10 days #20 caps 07/05/20 doxycycline monohydrate 100 mg 100 mg PO BID 10 days #20 caps 07/05/20 capsule oxycodone 5 mg tablet 5 mg PO BID PRN pain #10 tabs 07/05/20 diazepam 5 mg tablet (Valium) 5 mg PO TID PRN muscle spasm #12 03/01/21 tabs ibuprofen 600 mg tablet 600 mg PO Q6H PRN pain #30 tabs 03/01/21 lidocaine 4 % topical patch 1 patch topical DAILY PRN pain #10 03/01/21 ea morphine 15 mg immediate release 15 mg PO Q6H PRN pain 3 days #12 03/01/21 tablet tabs cyclobenzaprine 10 mg tablet 10 mg PO BEDTIME PRN muscle spasm 06/12/21 #7 tabs naproxen 500 mg tablet 500 mg PO BID PRN pain #14 tabs 06/12/21 fluticasone propionate 50 1 spray intranasal Q12H #16 grams 05/02/23 mcg/actuation nasal spray,suspension (Allergy Relief (fluticasone)) loratadine 10 mg tablet (Claritin) 10 mg PO DAILY #30 tabs 05/02/23 Allergies Allergy/AdvReac Type Severity Reaction Status Date / Time No Known Allergies Allergy Verified 07/02/20 11:34 Review of Systems 2 Review of Systems: Constitutional : No Fever, No Chills, No Fatigue ENT/Mouth : No sore throat, pos Rhinorrhea, pos congestion Eyes: No Eye Pain, No Swelling, No Redness Cardiovascular : No Chest Pain, No SOB, No Dyspnea on Exertion, pos dyspnea Respiratory : No Cough, No Sputum Gastrointestinal : No Nausea, No Vomiting, No Diarrhea, No abdominal Pain Genitourinary : No Dysuria, No Urinary Frequency, No Hematuria, Musculoskeletal : No joint pain, No Myalgias, No Joint Swelling Skin : No Skin Lesions, No rash Neuro : No Weakness, No Numbness, No Dizziness, no Headache Psych : No Anxiety/Panic, No Depression Heme/Lymph: No Bruising, No Bleeding,No Lymphadenopathy Endocrine : No Polyuria, No Polydipsia All other systems reviewed and are negative [facility] Past Medical History Attestation statement: The following information was validated with the patient. Medical History No pertinent past medical history Social History Social History Alcohol intake: never Patient Tobacco Use Status: Never used Tobacco Physical Exam ED Vital Signs: Vital Signs - 24 hr 05/02/23 18:46 05/02/23 21:13 Temperature 98.7 F 97.9 F Pulse Rate 85 72 Respiratory Rate 20 22 H Blood Pressure 149/94 H 146/95 H Pulse Oximetry 94 97 Oxygen Delivery Method Room Air Room Air BMI result Body Mass Index 33.5 Appearance: Alert. Oriented X3. No acute distress. Eyes: Pupils equal, round and reactive to light. ENT: Pharynx normal. Both nares turbinates are red and boggy no purulence no facial swelling Neck: Normal inspection. Neck supple. CVS: Normal heart rate and rhythm. Pulses normal. Respiratory: No respiratory distress. Breath sounds normal. Abdomen: Soft and nontender. Skin: Skin warm and dry. Normal skin color. Normal skin turgor. Extremities: No lower extremity edema. No calf ttp Neuro: Oriented X 3. No motor deficit. No sensory deficit. Course Course Course Narrative: This is a rapid medical exam: Additional HPI, ROS, PE not included below will be deferred to primary provider. Patient is a 47-year-old male presenting to the ED with 2 weeks of worsening shortness of breath and chest pain which began a few days ago. Denies fevers. Reports pain is to left anterior chest. Dyspnea worse when supine. Plan: EKG, labs, CXR, viral swabs Medical Decision Making Medical Decision Making [facility] Narrative: 47 yo male with no sig PMH here with 2 weeks of nasal congestion and feeling like he has post nasal drip at night causing him to wake up and choke the only relief he has had is some OTC nasal spray he used one time. He has no known allergies. He has no fevers or facial swelling. He has never had an issue like this before. Labs drawn, EKG and CXR from triage, Had atypical brief chest pain 3 days ago low susp for ACS, VTE or dissection - trop flat, EKG nonischemic ddimer negative, distal pulses intact. As for sinus issues will start on claritin and fluticasone refer to PCP Differential Diagnosis Differential Diagnoses: The differential diagnosis associated with the presentation includes allergic rhinitis, sinusitis - viral Admission/Observation Consideration of admission/observation: Escalation of care including admission/observation considered work up negative stable for DC VS stable Lab Data [facility] Lab Attestation statement: I reviewed the patient's lab results. 05/02/23 18:59 05/02/23 18:59 Labs: Lab Results 05/02/23 Range/Units 18:59 WBC 5.5 (4.8-10.8) X10*3/uL RBC 4.61 (4.60-5.80) X10*6/uL Hgb 14.7 (14.0-18.0) g/dl Hct 42.4 (42.0-52.0) % MCV 92.0 (80.0-98.0) fL MCH 31.9 (27.0-33.0) pg MCHC 34.7 (31.0-36.0) g/dl RDW 13.0 (11.0-16.0) % Plt Count 219 (160-400) X10*3/uL MPV 8.8 L (9.4-12.4) fL Immature Gran % (Auto) 0.4 (0.0-0.4) % Neut % (Auto) 50.8 (45-73) % Lymph % (Auto) 35.2 (20-40) % [place] % (Auto) 8.7 (2-11) % Eos % (Auto) 4.7 H (0-4) % Baso % (Auto) 0.2 (0-2) % Lymph # (Auto) 1.9 (1.2-4.9) X10*3/uL [place] # (Auto) 0.5 (0.1-1.2) X10*3/uL Eos # (Auto) 0.3 (0.0-0.4) X10*3/uL Baso # (Auto) 0.0 (0.0-0.2) X10*3/uL Abs Immat Gran (auto) 0.02 (0.00-0.03) X10*3/uL Absolute Neuts (auto) 2.8 (2.0-8.3) x10*3/uL Absolute Nucleated RBC 0.000 (0.0-0.012) X10*3/uL Nucleated RBC % (auto) 0.0 (0.0-0.2) /100WBC PT 12.2 (11.1-13.3) SEC INR 1.0 (0.9-1.1) D-Dimer High Sensitivty < 150 NG/ML Sodium 143 (135-145) mmol/L Potassium 3.7 (3.3-5.1) mmol/L Chloride 108 (96-108) mmol/L Carbon Dioxide 26 (22-29) mmol/L Anion Gap 13 (12-20) BUN 13 (9-16) mg/dL Creatinine 1.01 (0.5-1.4) mg/dL Estim Creat Clear Calc 104.7 Estimated GFR > 60 Random Glucose 120 H (60-115) mg/dL Calcium 9.0 (8.4-10.2) mg/dL Total Bilirubin 0.9 (0.0-1.0) mg/dL AST 43 H (5-37) U/L ALT 77 H (0-40) U/L Alkaline Phosphatase 90 (39-117) U/L Troponin I High Sens < 2.7 (<3.5-35.0) ng/L Total Protein 7.4 (6.5-8.0) g/dL Albumin 4.1 (3.5-5.0) g/dL COVID-19 (ARIANE) Negative (Negative) COVID-19 Clin Com See Note Influenza Type A (MAURY) Negative (Negative) Influenza Type B (MAURY) Negative (Negative) Influenza A & B Note See Note Independent Interpretation I performed an independent interpretation of an: EKG and Plain X-Ray (no pneumonia) Interpretation: Rate: 85 Rhythm: NSR [place]: left Normal P waves. Normal KATELYN. Normal QRS complex. ST T wave : normal no ANNETTE, qTC: 428 prior studies: no acute ischemia The study has been interpreted contemporaneously by me. . Radiology Impression Discussion of test interpretation with radiology: I have reviewed the radiologist's reading. Independent Historian Clinical information obtained from an independent historian. History obtained from or confirmed by: Spouse Prescription Management I considered prescription management with: Other Discharge Plan Discharge Clinical Impression: Atypical chest pain Acute sinusitis Qualifiers: Sinusitis location: unspecified location Recurrence: non-recurrent Qualified Code(s): J01.90 - Acute sinusitis, unspecified Patient Disposition: Home, Self-Care Instructions: Chest Pain (ED), Sinusitis (ED) Additional Instructions: return for worsening symptoms or no improvement. take all medications with food. use nasal spray. follow up with your doctor for possible outpatient stress test. Prescriptions: New loratadine [Claritin] 10 mg tablet 10 mg PO DAILY Qty: 30 0RF fluticasone propionate [Allergy Relief (fluticasone)] 50 mcg/actuation spray,suspension 1 spray intranasal Q12H Qty: 16 0RF Rx Instructions: administer into each nostril No Action doxycycline monohydrate 100 mg capsule 100 mg PO BID 10 Days Qty: 20 0RF cephalexin 500 mg capsule 500 mg PO BID 10 Days Qty: 20 0RF oxycodone 5 mg tablet 5 mg PO BID PRN (Reason: pain) Qty: 10 0RF lidocaine 4 % adhesive patch,medicated 1 patch topical DAILY PRN (Reason: pain) Qty: 10 0RF Rx Instructions: may leave on for up to 12 hrs ibuprofen 600 mg tablet 600 mg PO Q6H PRN (Reason: pain) Qty: 30 0RF morphine 15 mg tablet 15 mg PO Q6H PRN (Reason: pain) 3 Days Qty: 12 0RF diazepam [Valium] 5 mg tablet 5 mg PO TID PRN (Reason: muscle spasm) Qty: 12 0RF cyclobenzaprine 10 mg tablet 10 mg PO BEDTIME PRN (Reason: muscle spasm) Qty: 7 0RF naproxen 500 mg tablet 500 mg PO BID PRN (Reason: pain) Qty: 14 0RF Rx Instructions: Take with food prednisone 20 mg tablet 20 mg PO .COMPLEX Qty: 18 0RF Rx Instructions: 20 mg PO 3 p.o. daily for 3 days followed by 2 p.o. daily for 3 days followed by 1 p.o. daily for 3 days; amoxicillin-pot clavulanate [Augmentin] 875-125 mg tablet 1 tab PO BID Qty: 20 0RF
[2023-05-02 19:04] LABS: MANUAL DIFF FLAG NO
[2023-05-02 19:06] LABS: Basophils Percent Auto 0.2 % (0-2); Eosinophils Absolute Auto 0.3 X10*3/uL (0.0-0.4); Eosinophils Percent Auto 4.7 % (0-4); Hematocrit 42.4 % (42.0-52.0); Hemoglobin 14.7 g/dl (14.0-18.0); Imm Gran Abs Auto 0.02 X10*3/uL (0.00-0.03); Imm Gran Pct Auto 0.4 % (0.0-0.4); Lymphocytes Absolute Auto 1.9 X10*3/uL (1.2-4.9); Lymphocytes Percent Auto 35.2 % (20-40); Mean Corpuscular HGB Conc 34.7 g/dl (31.0-36.0); Mean Corpuscular Hemoglobin 31.9 pg (27.0-33.0); Mean Platelet Volume 8.8 fL (9.4-12.4); Monocytes Absolute Auto 0.5 X10*3/uL (0.1-1.2); Monocytes Percent Auto 8.7 % (2-11); Neutrophils Absolute Auto 2.8 x10*3/uL (2.0-8.3); Neutrophils Percent Auto 50.8 % (45-73); Platelet Count 219 X10*3/uL (160-400); Red Blood Count 4.61 X10*6/uL (4.60-5.80); White Blood Count 5.5 X10*3/uL (4.8-10.8)
[2023-05-02 19:11] LABS: Prothrombin Time 12.2 SEC (11.1-13.3)
[2023-05-02 19:19] LABS: Alanine Aminotransferase 77 U/L (0-40); Albumin Level 4.1 g/dL (3.5-5.0); Alkaline Phosphatase 90 U/L (39-117); Anion Gap 13 (12-20); Aspartate Amino Transferase 43 U/L (5-37); Bilirubin Total 0.9 mg/dL (0.0-1.0); Blood Urea Nitrogen 13 mg/dL (9-16); Carbon Dioxide 26 mmol/L (22-29); Chloride 108 mmol/L (96-108); Creatinine Clr Calc Pharmacy 104.7; Estimated Glomerular Filt Rate > 60; Glucose Random 120 mg/dL (60-115); Potassium 3.7 mmol/L (3.3-5.1); Sodium 143 mmol/L (135-145); Total Protein 7.4 g/dL (6.5-8.0)
[2023-05-02 19:26] LABS: Troponin-I High Sensitivity < 2.7 ng/L (<3.5-35.0)
[2023-05-02 19:33] LABS: COVID-19 Test Negative (Negative); IDNOW Serial# 08D9AD1C; IDNOW Serial# 152EDE1D; Influenza A Negative (Negative); Influenza B2 Negative (Negative)
[2023-05-02 21:13] VITALS: BP 146/95; PULSE 72; RESP 22; TEMP 36.6; O2SAT 97
[2023-05-02 21:24] LABS: D Dimer High Sensitivity < 150 NG/ML
[2023-05-02 21:34] LABS: B Type Natriuretic Peptide 15 pg/mL (<100)
[2023-05-02 21:58] VITALS: BP 141/85; PULSE 71; RESP 16; O2SAT 96
[2023-05-02] MEDS: Oxymetazoline HCl 0.05 % Nasal 15 ML SPRAY 2 SPRAY NOSTRIL-B (21:59)
== END 2023-05-02 22:07 | disposition home or self-care (01) ==
PROVIDERS: Registered Nurse Emergency; Emergency Provider Emergency Medicine
DX: R07.89 Other chest pain (principal); J01.90 Acute sinusitis, unspecified; R06.02 Shortness of breath; Z11.52 Encounter for screening for COVID-19
CPT/HCPCS: 71046; 80053; 83880; 84484; 85025; 85379; 85610; 87502; 87635; 93005; 99283; 99285

== ENCOUNTER → 2023-05-02 18:29 | Outpatient (BNV) | payer MEDICAID, SELFPAY | PROVIDERS: Emergency Provider Emergency Medicine; Visit Provider Internal Medicine Cardiovascular Disease | DX: I45.10 Unspecified right bundle-branch block (principal) | CPT/HCPCS: 93010 ==

== ENCOUNTER 2023-08-26 20:00 | Emergency (ER) | payer SELFPAY ==
--- NOTE | ~2023-08-26 | CT_ITS ---
EXAMINATION: CT ABDOMEN AND PELVIS WITH CONTRAST CLINICAL INFORMATION: Periumbilical pain. Rule out appendicitis. COMPARISON: Previous CT of the abdomen and pelvis February 2021 TECHNIQUE: Multidetector volumetric images were obtained from the superior aspect of the liver through the pubic symphysis following administration 85 mL of Omnipaque 350 intravenous contrast. Sagittal and coronal reformatted images were obtained on the technologist's workstation. Oral contrast: Yes This CT examination was performed using dose optimization techniques as appropriate, variously including the following: *Automated exposure control *Adjustment of mA and/or kV according to patient size (this includes techniques or standardized protocols for targeted exams where dose is matched to indication/reason for exam; i.e. extremities or head) *Use of iterative reconstruction technique DLP: 667 mGy-cm FINDINGS: LUNG BASES: The visualized lung bases are unremarkable. LIVER, GALLBLADDER, AND BILIARY TREE: Fatty liver. No focal hepatic lesion or biliary ductal dilatation is present. The gallbladder is unremarkable with no evidence of radiopaque gallstones, gallbladder wall thickening, or obvious pericholecystic inflammatory changes. PANCREAS: Unremarkable. SPLEEN: Unremarkable. ADRENAL GLANDS: Unremarkable. KIDNEYS AND URETERS: The kidneys are normal in size, shape, and attenuation. No hydronephrosis, hydroureter, or calculi seen. No perinephric stranding. BLADDER: Unremarkable. GASTROINTESTINAL TRACT: Wall thickening and edema of the distal small bowel including the terminal ileum. Mild diverticulosis of the colon. The small and large bowel are otherwise unremarkable. The appendix is unremarkable. No ascites. ABDOMINAL WALL: No significant hernia is appreciated. LYMPH NODES: Normal. VASCULAR: Unremarkable. PELVIC VISCERA: Unremarkable. OSSEOUS STRUCTURES: Unremarkable. CT/CT abdomen pelvis w IV con IMPRESSION: Wall thickening and edema of the distal small bowel suggestive of enteritis. Normal appendix. Fatty liver. Fleischner guidelines were followed.
[2023-08-26 20:02] VITALS: BP 143/77; PULSE 95; RESP 18; TEMP 36.4; O2SAT 96; BMI 35.0
[2023-08-26 20:15] LABS: MANUAL DIFF FLAG NO
[2023-08-26 20:16] LABS: Basophils Percent Auto 0.4 % (0-2); Eosinophils Absolute Auto 0.2 X10*3/uL (0.0-0.4); Eosinophils Percent Auto 3.6 % (0-4); Hematocrit 42.1 % (42.0-52.0); Hemoglobin 14.9 g/dl (14.0-18.0); Imm Gran Abs Auto 0.03 X10*3/uL (0.00-0.03); Imm Gran Pct Auto 0.6 % (0.0-0.4); Lymphocytes Absolute Auto 1.9 X10*3/uL (1.2-4.9); Lymphocytes Percent Auto 35.7 % (20-40); Mean Corpuscular HGB Conc 35.4 g/dl (31.0-36.0); Mean Corpuscular Hemoglobin 32.2 pg (27.0-33.0); Mean Corpuscular Volume 90.9 fL (80.0-98.0); Mean Platelet Volume 8.5 fL (9.4-12.4); Monocytes Absolute Auto 0.4 X10*3/uL (0.1-1.2); Monocytes Percent Auto 8.3 % (2-11); Neutrophils Absolute Auto 2.7 x10*3/uL (2.0-8.3); Neutrophils Percent Auto 51.4 % (45-73); Platelet Count 265 X10*3/uL (160-400); Red Blood Count 4.63 X10*6/uL (4.60-5.80); Red Cell Distribution Width 12.4 % (11.0-16.0); White Blood Count 5.3 X10*3/uL (4.8-10.8)
[2023-08-26 20:30] LABS: Alanine Aminotransferase 97 U/L (0-40); Albumin Level 4.1 g/dL (3.5-5.0); Alkaline Phosphatase 79 U/L (39-117); Anion Gap 13 (12-20); Aspartate Amino Transferase 87 U/L (5-37); Bilirubin Direct 0.3 mg/dL (0.0-0.5); Bilirubin Total 0.8 mg/dL (0.0-1.0); Blood Urea Nitrogen 13 mg/dL (9-16); Calcium 9.2 mg/dL (8.4-10.2); Carbon Dioxide 25 mmol/L (22-29); Chloride 108 mmol/L (96-108); Creatinine Clr Calc Pharmacy 111.3; Estimated Glomerular Filt Rate > 60; Glucose Random 116 mg/dL (60-115); Lipase 44 U/L (8-78); Potassium 4.1 mmol/L (3.3-5.1); Sodium 142 mmol/L (135-145); Total Protein 7.4 g/dL (6.5-8.0)
[2023-08-26 20:47] VITALS: BP 136/91; PULSE 90; RESP 18; O2SAT 95
[2023-08-26] MEDS: Morphine Sulfate 4 MG/ML CARTRIDGE IVPUSH (21:05)
[2023-08-26] MEDS: ondansetron HCL 4 MG/2 ML VIAL IVPUSH (21:05)
[2023-08-26] MEDS: iohexoL 350 MG/ML 100 ML INFUS..BTL IV (21:19)
--- NOTE | 2023-08-26 21:38 | ED_ITS ---
HPI - Abdominal Pain General Chief Complaint: Abdominal Pain Stated Complaint: sharp abd pain, diarrhea Time Seen by Provider: 08/26/23 21:05 Source: patient Limitations: no limitations History of Present Illness ED Provider: Dr. Syeda Mitchell HPI narrative: patient comes to the emergency room complaining of sharp periumbilical pain radiating towards the right lower quadrant. Patient states it has been 3 days. Patient complaining of diarrhea, nausea, no vomiting. Patient states that approximately 5 months ago patient had similar symptoms, lasted 3 days and then self-resolved. However, the pain this time has not resolved. Patient denies any hematuria or dysuria, no flank pain. No fever. Patient states that yesterday his stay at home curled up due to abdominal pain and diffuse body aches. Today, patient denies any body aches, just abdominal pain Related Data Previous Rx's ?Medication ?Instructions ?Recorded amoxicillin 875 mg-potassium 1 tab PO BID #20 tabs 07/02/20 clavulanate 125 mg tablet (Augmentin) prednisone 20 mg tablet 20 mg PO .COMPLEX #18 tabs 07/02/20 cephalexin 500 mg capsule 500 mg PO BID 10 days #20 caps 07/05/20 doxycycline monohydrate 100 mg 100 mg PO BID 10 days #20 caps 07/05/20 capsule oxycodone 5 mg tablet 5 mg PO BID PRN pain #10 tabs 07/05/20 diazepam 5 mg tablet (Valium) 5 mg PO TID PRN muscle spasm #12 03/01/21 tabs ibuprofen 600 mg tablet 600 mg PO Q6H PRN pain #30 tabs 03/01/21 lidocaine 4 % topical patch 1 patch topical DAILY PRN pain #10 03/01/21 ea morphine 15 mg immediate release 15 mg PO Q6H PRN pain 3 days #12 03/01/21 tablet tabs cyclobenzaprine 10 mg tablet 10 mg PO BEDTIME PRN muscle spasm 06/12/21 #7 tabs naproxen 500 mg tablet 500 mg PO BID PRN pain #14 tabs 06/12/21 fluticasone propionate 50 1 spray intranasal Q12H #16 grams 05/02/23 mcg/actuation nasal spray,suspension (Allergy Relief (fluticasone)) loratadine 10 mg tablet (Claritin) 10 mg PO DAILY #30 tabs 05/02/23 hyoscyamine sulfate 0.125 mg tablet 0.125 mg PO QID PRN dyspepsia #10 08/26/23 tabs Allergies Allergy/AdvReac Type Severity Reaction Status Date / Time No Known Allergies Allergy Verified 08/26/23 20:04 Review of Systems Review of Systems Constitutional : No Weight loss, No Fever, No Chills, No Night Sweats, No Fatigue, No Malaise ENT/Mouth : No Hearing loss, No Ear Pain, No Nasal Congestion, No Sinus Pain, No Hoarseness, No sore throat, No Rhinorrhea, No Swallowing Difficulty Eyes: No Eye Pain, No Swelling, No Redness, No Foreign Body, No Discharge, No Vision Changes Cardiovascular : No Chest Pain, No SOB, No Dyspnea on Exertion, No Orthopnea, No Edema, No Palpitations Respiratory : No Cough, No Sputum, No Wheezing, No Smoke Exposure, No Dyspnea Gastrointestinal : complaining of Nausea, No Vomiting, No Diarrhea, No Constipation, complaining of periumbilical pain radiating towards the right lower quadrant Genitourinary : no irregular bleeding, No Dysuria, No Urinary Frequency, No Hematuria, No Urinary Incontinence, No Urgency, No Flank Pain, No Urinary Flow Changes, No Hesitancy Musculoskeletal : No joint pain, No Myalgias, No Joint Swelling Skin : No Skin Lesions, No rash Neuro : No Weakness, No Numbness, No Paresthesias, No Loss of Consciousness, No Dizziness, No Headache Psych : No Anxiety/Panic, No Depression, No SI/HI/AH/VH, No Social Issues, Heme/Lymph: No Bruising, No Bleeding,No Lymphadenopathy Endocrine : No Polyuria, No Polydipsia, No Temperature Intolerance [facility] Past Medical History Medical History No pertinent past medical history Social History Social History (Updated 05/02/23 @ 21:36 by Kirstie Hanley DO) Alcohol intake: current Alcohol intake frequency: holidays/special occasions only Alcohol type: beer Patient Tobacco Use Status: Never used Tobacco Smoked in Last 30 Days: No Use of substances other than those prescribed or required for medical reasons: No Advance Directives: No Advance Directives Information Provided: No Do you have a plan to hurt others: No Plan Physical Exam ED Vital Signs: Vital Signs - 24 hr 08/26/23 20:02 08/26/23 20:47 Temperature 97.6 F Pulse Rate 95 90 Respiratory Rate 18 18 Blood Pressure 143/77 H 136/91 H Pulse Oximetry 96 95 Oxygen Delivery Method Room Air Room Air BMI result Body Mass Index 35.0 Const Other: Appearance: Alert. Oriented X3. No acute distress. Eyes: Pupils equal, round and reactive to light. ENT: Pharynx normal. Neck: Normal inspection. Neck supple. No lymph nodes noted. No crepitus CVS: Normal heart rate and rhythm. Pulses normal. Normal S1 and S2 Respiratory: No respiratory distress. Breath sounds normal. No Wheezing. No rales Abdomen: soft, complaining of periumbilical pain, complaining of pain with deep palpation over the right lower quadrant, mild guarding, no rebound Skin: Skin warm and dry. Normal skin color. Normal skin turgor. Extremities: No lower extremity edema. No Lacerations. No Rash Neuro: Oriented X 3. No motor deficit. No sensory deficit. Moving all extremities. No slurred speech. CN 2 through 12 grossly intact Psych: calm, cooperative, normal affect Course Course Course Narrative: - patient was giving IV Zofran, morphine - discussed with the patient that we will obtain a CT scan to rule out acute appendicitis, patient agrees with plan Medical Decision Making Medical Decision Making [facility] Narrative: - my interpretation of labs: Normal hematology and chemistry - physical exam concerning for acute appendicitis. CT scan pending - after IV morphine, patient feeling much better. However patient does have reproducible pain on deep palpation over the periumbilical area and right lower quadrant -CT my interpretation: no obvious abnormality. Radiology report, Enteritis. -patient feeling better, antibiotics not indicated. Differential Diagnosis Differential Diagnoses: The differential diagnosis associated with the presentation includes ( Appendicitis, gastritis, gastroenteritis, SBO) Admission/Observation Consideration of admission/observation: Escalation of care including admission/observation considered ( given patient's description of symptoms, admission was considered) Lab Data [facility] Lab Attestation statement: I reviewed the patient's lab results. 08/26/23 20:10 08/26/23 20:10 Labs: Lab Results 08/26/23 Range/Units 20:10 WBC 5.3 (4.8-10.8) X10*3/uL RBC 4.63 (4.60-5.80) X10*6/uL Hgb 14.9 (14.0-18.0) g/dl Hct 42.1 (42.0-52.0) % MCV 90.9 (80.0-98.0) fL MCH 32.2 (27.0-33.0) pg MCHC 35.4 (31.0-36.0) g/dl RDW 12.4 (11.0-16.0) % Plt Count 265 (160-400) X10*3/uL MPV 8.5 L (9.4-12.4) fL Immature Gran % (Auto) 0.6 H (0.0-0.4) % Neut % (Auto) 51.4 (45-73) % Lymph % (Auto) 35.7 (20-40) % [place] % (Auto) 8.3 (2-11) % Eos % (Auto) 3.6 (0-4) % Baso % (Auto) 0.4 (0-2) % Lymph # (Auto) 1.9 (1.2-4.9) X10*3/uL [place] # (Auto) 0.4 (0.1-1.2) X10*3/uL Eos # (Auto) 0.2 (0.0-0.4) X10*3/uL Baso # (Auto) 0.0 (0.0-0.2) X10*3/uL Abs Immat Gran (auto) 0.03 (0.00-0.03) X10*3/uL Absolute Neuts (auto) 2.7 (2.0-8.3) x10*3/uL Absolute Nucleated RBC 0.000 (0.0-0.012) X10*3/uL Nucleated RBC % (auto) 0.0 (0.0-0.2) /100WBC Sodium 142 (135-145) mmol/L Potassium 4.1 (3.3-5.1) mmol/L Chloride 108 (96-108) mmol/L Carbon Dioxide 25 (22-29) mmol/L Anion Gap 13 (12-20) BUN 13 (9-16) mg/dL Creatinine 0.96 (0.5-1.4) mg/dL Estim Creat Clear Calc 111.3 Estimated GFR > 60 Random Glucose 116 H (60-115) mg/dL Calcium 9.2 (8.4-10.2) mg/dL Total Bilirubin 0.8 (0.0-1.0) mg/dL Direct Bilirubin 0.3 (0.0-0.5) mg/dL AST 87 H (5-37) U/L ALT 97 H (0-40) U/L Alkaline Phosphatase 79 (39-117) U/L Total Protein 7.4 (6.5-8.0) g/dL Albumin 4.1 (3.5-5.0) g/dL Lipase 44 (8-78) U/L Independent Interpretation I performed an independent interpretation of an: CT Scan Radiology Impression Discussion of test interpretation with radiology: I have reviewed the radiologist's reading. Radiologist Impression: FINDINGS: LUNG BASES: The visualized lung bases are unremarkable. LIVER, GALLBLADDER, AND BILIARY TREE: Fatty liver. No focal hepatic lesion or biliary ductal dilatation is present. The gallbladder is unremarkable with no evidence of radiopaque gallstones, gallbladder wall thickening, or obvious pericholecystic inflammatory changes. PANCREAS: Unremarkable. SPLEEN: Unremarkable. ADRENAL GLANDS: Unremarkable. KIDNEYS AND URETERS: The kidneys are normal in size, shape, and attenuation. No hydronephrosis, hydroureter, or calculi seen. No perinephric stranding. BLADDER: Unremarkable. GASTROINTESTINAL TRACT: Wall thickening and edema of the distal small bowel including the terminal ileum. Mild diverticulosis of the colon. The small and large bowel are otherwise unremarkable. The appendix is unremarkable. No ascites. ABDOMINAL WALL: No significant hernia is appreciated. LYMPH NODES: Normal. VASCULAR: Unremarkable. PELVIC VISCERA: Unremarkable. OSSEOUS STRUCTURES: Unremarkable. CT/CT abdomen pelvis w IV con IMPRESSION: Wall thickening and edema of the distal small bowel suggestive of enteritis. Normal appendix. Fatty liver. Medications Administered Discontinued Medications Generic Name Dose Route Start Last Admin Trade Name Freq PRN Reason Stop Dose Admin Iohexol 100 ml 08/26/23 21:19 08/26/23 21:19 Iohexol 350 Mg/Ml 100 Ml Infus..Btl IV 08/26/23 21:20 85 ml ONCE ONE Administration Morphine Sulfate 4 mg 08/26/23 21:00 08/26/23 21:05 Morphine Sulfate 4 Mg/Ml Cartridge IVPUSH 08/26/23 21:01 4 mg ONCE STA Administration Protocol Ondansetron HCl 4 mg 08/26/23 21:00 08/26/23 21:05 Ondansetron Hcl 4 Mg/2 Ml Vial IVPUSH 08/26/23 21:01 4 mg ONCE ONE Administration Critical Care Time Critical Care Time Critical Care Time: Yes Total Critical Care Time: 60 Attestation: I have personally provided critical care time. Time includes review of lab data, radiology results, discussion with consultants, and monitoring for potential decompensation. Intervention performed as documented. Discharge Plan Discharge Clinical Impression: Enteritis Patient Disposition: Home, Self-Care Instructions: Enteritis (ED) Additional Instructions: Please follow-up with your primary care physician tomorrow. If you have any worsening or new symptoms, please return to the emergency room or call 911 Prescriptions: New hyoscyamine sulfate 0.125 mg tablet 0.125 mg PO QID PRN (Reason: dyspepsia) Qty: 10 0RF No Action doxycycline monohydrate 100 mg capsule 100 mg PO BID 10 Days Qty: 20 0RF cephalexin 500 mg capsule 500 mg PO BID 10 Days Qty: 20 0RF oxycodone 5 mg tablet 5 mg PO BID PRN (Reason: pain) Qty: 10 0RF lidocaine 4 % adhesive patch,medicated 1 patch topical DAILY PRN (Reason: pain) Qty: 10 0RF Rx Instructions: may leave on for up to 12 hrs ibuprofen 600 mg tablet 600 mg PO Q6H PRN (Reason: pain) Qty: 30 0RF morphine 15 mg tablet 15 mg PO Q6H PRN (Reason: pain) 3 Days Qty: 12 0RF diazepam [Valium] 5 mg tablet 5 mg PO TID PRN (Reason: muscle spasm) Qty: 12 0RF cyclobenzaprine 10 mg tablet 10 mg PO BEDTIME PRN (Reason: muscle spasm) Qty: 7 0RF naproxen 500 mg tablet 500 mg PO BID PRN (Reason: pain) Qty: 14 0RF Rx Instructions: Take with food loratadine [Claritin] 10 mg tablet 10 mg PO DAILY Qty: 30 0RF fluticasone propionate [Allergy Relief (fluticasone)] 50 mcg/actuation spray,suspension 1 spray intranasal Q12H Qty: 16 0RF Rx Instructions: administer into each nostril prednisone 20 mg tablet 20 mg PO .COMPLEX Qty: 18 0RF Rx Instructions: 20 mg PO 3 p.o. daily for 3 days followed by 2 p.o. daily for 3 days followed by 1 p.o. daily for 3 days; amoxicillin-pot clavulanate [Augmentin] 875-125 mg tablet 1 tab PO BID Qty: 20 0RF Print Language: Estonian
[2023-08-26 23:47] VITALS: BP 128/88; PULSE 78; RESP 18; TEMP 36.8; O2SAT 97
== END 2023-08-26 23:48 | disposition home or self-care (01) ==
PROVIDERS: Emergency Provider Emergency Medicine
DX: K52.9 Noninfective gastroenteritis and colitis, unspecified (principal); R10.33 Periumbilical pain; R10.31 Right lower quadrant pain; R11.0 Nausea; Z79.899 Other long term (current) drug therapy
CPT/HCPCS: 36415; 74177; 80048; 80076; 83690; 85025; 96374; 96375; 99284; J2270; J2405; Q9967

== ENCOUNTER 2023-11-08 08:49 | Emergency (ER) | payer OTHER, SELFPAY ==
--- NOTE | ~2023-11-08 | CT_ITS ---
EXAMINATION: CT SOFT TISSUE NECK WITH CONTRAST CLINICAL INFORMATION: Shortness of breath. COMPARISON: None available. TECHNIQUE: Following the intravenous administration of 85 mL of Omnipaque 350 intravenous contrast, helical imaging was performed in the axial plane with generation of coronal and sagittal reformatted images. This CT examination was performed using dose optimization techniques as appropriate, variously including the following: *Automated exposure control *Adjustment of mA and/or kV according to patient size (this includes techniques or standardized protocols for targeted exams where dose is matched to indication/reason for exam; i.e. extremities or head) *Use of iterative reconstruction technique DLP: 1174.16 mGy-cm FINDINGS: No cervical adenopathy is identified. The parotid glands are homogeneous in attenuation. The submandibular glands are normal. No contour abnormality or pathologic enhancement is seen within the oral cavity or pharyngeal mucosal space. There is enlargement of the uvula as seen on sagittal and axial images. The laryngeal structures are normal. The parapharyngeal fat is preserved. The carotid sheath vasculature opacify normally. No extra mucosal soft tissue mass or fluid collection is seen. No retropharyngeal fluid collection is seen. The thyroid gland is normal. The superior mediastinum is unremarkable. The lung apices are clear. The mastoid air cells and visualized portions of the paranasal sinuses are well-aerated. The temporomandibular joints are normal. No periapical disease is identified. No osseous abnormalities are seen. Minimal multilevel degenerative disc disease in the cervical spine. The imaged portions of the brain parenchyma are unremarkable. CT/CT soft tissue neck w IV con IMPRESSION: Enlargement of the uvula. Recommend visual correlation for uvulitis. Otherwise no acute findings in the neck.
--- NOTE | ~2023-11-08 | CT_ITS ---
EXAMINATION: CT ANGIOGRAM OF THE CHEST WITH AND WITHOUT CONTRAST (CT PULMONARY ANGIOGRAM FOR PE) CLINICAL INFORMATION: Reason for Exam SOB, recent travel, concern for PE COMPARISON: 02/28/2021 TECHNIQUE: Prior to contrast administration, noncontrast localization images were obtained. Subsequently, multidetector volumetric imaging was performed from the thoracic inlet to below the diaphragms following the administration of 85 mL Omnipaque 350 intravenous contrast. No contrast reaction reported Sagittal, coronal, and MIP oblique sagittal reformatted images were obtained on the CT workstation, uploaded to PACS, and reviewed. This CT examination was performed using dose optimization techniques as appropriate, variously including the following: *Automated exposure control *Adjustment of mA and/or kV according to patient size (this includes techniques or standardized protocols for targeted exams where dose is matched to indication/reason for exam; i.e. extremities or head) *Use of iterative reconstruction technique Total exam dose-length product 1174 mGy-cm FINDINGS: QUALITY OF STUDY/CONTRAST BOLUS: Satisfactory. PULMONARY ARTERIES: No pulmonary emboli to the proximal subsegmental level. THORACIC AORTA: No aneurysm or dissection. LUNG: Mild dependent atelectasis. No airspace consolidation. Central airways are clear. No suspicious pulmonary nodules PLEURA: No pleural effusion or pneumothorax. MEDIASTINUM: Normal heart size. No pericardial effusion. No hilar or mediastinal lymphadenopathy. No evidence of septal bowing or right heart strain. CORONARY ARTERY CALCIFICATION: None visualized on this study. CHEST WALL/AXILLA: No axillary or internal mammary lymphadenopathy. OSSEOUS STRUCTURES: Mild degenerative disc disease midthoracic spine. No fracture or malalignment. UPPER ABDOMEN: Hepatic steatosis. No reflux of contrast into the hepatic veins to suggest elevated right heart pressures. CT/CT angio chest PE protocol IMPRESSION: 1. No evidence of pulmonary emboli to the proximal subsegmental level. 2. No acute pulmonary findings. 3. Hepatic steatosis. VTE: negative.
[2023-11-08 08:53] VITALS: BP 123/78; PULSE 119; RESP 22; TEMP 37.2; O2SAT 89; BMI 31.9
--- NOTE | 2023-11-08 09:03 | ED.GENADULT ---
HPI - General Adult General Chief complaint: Dyspnea Stated complaint: Pain when breathing Time Seen by Provider: 11/08/23 09:03 Source: patient Mode of arrival: ambulatory Limitations: no limitations History of Present Illness ED Provider: Amna Sánchez PA-C HPI narrative: Patient is a 48 year old assigned male at with no reported medical history presenting to the emergency department today with difficulty breathing. Patient states that starting this morning he feels like he is having a hard time breathing. Patient states that when he takes a deep breath he feels like his throat is closing. Patient states that he recently traveled to [facility] on a 6 hour flight. Patient denies any dizziness, lightheadedness, abdominal pain, nausea, vomiting, fever, chills, blurry vision, double vision, loss of vision, chest pain, back pain, night sweats, pain with urination, increased urinary frequency, increased urinary urgency, blood in his urine or stool, syncope or a near syncopal episode, recent trauma or falls, bowel incontinence, bladder incontinence, or any other complaints at this time. Relieving factors: none Exacerbating factors: none Associated symptoms: shortness of breath Treatments prior to arrival: none Related Data Previous Rx's ?Medication ?Instructions ?Recorded amoxicillin 875 mg-potassium 1 tab PO BID #20 tabs 07/02/20 clavulanate 125 mg tablet (Augmentin) prednisone 20 mg tablet 20 mg PO .COMPLEX #18 tabs 07/02/20 cephalexin 500 mg capsule 500 mg PO BID 10 days #20 caps 07/05/20 doxycycline monohydrate 100 mg 100 mg PO BID 10 days #20 caps 07/05/20 capsule oxycodone 5 mg tablet 5 mg PO BID PRN pain #10 tabs 07/05/20 diazepam 5 mg tablet (Valium) 5 mg PO TID PRN muscle spasm #12 03/01/21 tabs ibuprofen 600 mg tablet 600 mg PO Q6H PRN pain #30 tabs 03/01/21 lidocaine 4 % topical patch 1 patch topical DAILY PRN pain #10 03/01/21 ea morphine 15 mg immediate release 15 mg PO Q6H PRN pain 3 days #12 03/01/21 tablet tabs cyclobenzaprine 10 mg tablet 10 mg PO BEDTIME PRN muscle spasm 06/12/21 #7 tabs naproxen 500 mg tablet 500 mg PO BID PRN pain #14 tabs 06/12/21 fluticasone propionate 50 1 spray intranasal Q12H #16 grams 05/02/23 mcg/actuation nasal spray,suspension (Allergy Relief (fluticasone)) loratadine 10 mg tablet (Claritin) 10 mg PO DAILY #30 tabs 05/02/23 hyoscyamine sulfate 0.125 mg tablet 0.125 mg PO QID PRN dyspepsia #10 08/26/23 tabs penicillin V potassium 500 mg 500 mg PO BID 10 days #20 tabs 11/08/23 tablet Allergies Allergy/AdvReac Type Severity Reaction Status Date / Time No Known Allergies Allergy Verified 11/08/23 08:56 Review of Systems Constitutional: Constitutional: Reports no additional constitutional complaints, Denies chills, Denies fever(s) and Denies night sweats Eyes: Eyes: Reports no additional eye complaints, Denies blurry vision, Denies change in vision, Denies diplopia, Denies eye discharge, Denies loss of vision and Denies eye pain ENT: Denies dizziness Cardiovascular: Cardiovascular: Reports no additional cardiovascular complaints, Denies chest pain, Denies lightheadedness, Denies Loss of Consciousness and Reports dyspnea Respiratory: Respiratory: Reports no additional respiratory complaints and Reports dyspnea Gastrointestinal: Gastrointestinal: Reports no additional gastrointestinal complaints, Denies abdominal pain, Denies melena, Denies hematochezia, Denies change in bowel habits and Denies change in stool character Genitourinary: Genitourinary: Reports no additional male genitourinary complaints, Denies hematuria, Denies oliguria, Denies difficulty urinating, Denies dysuria, Denies urinary frequency, Denies urinary hesitancy, Denies urinary incontinence and Denies urinary urgency Musculoskeletal: Musculoskeletal: Reports no additional musculoskeletal complaints, Denies numbness and Denies tingling Neurologic: Denies dizziness, Denies loss of vision, Denies numbness and Denies tingling Psychiatric: Psychiatric: Reports no additional psychiatric complaints Endocrine: Endocrine: Reports no additional endocrine complaints Hematologic/Lymphatic: Hematologic/Lymphatic: Reports no additional hematologic/lymphatic complaints Allergic/Immunologic: Allergic/Immunologic: Reports no additional allergic/immunologic complaints PMFSH Past Medical History Attestation statement: The following information was validated with the patient. Source: old records reviewed and nursing notes reviewed Medical History No pertinent past medical history Social History Social History Alcohol intake: current Alcohol intake frequency: holidays/special occasions only Alcohol type: beer Patient Tobacco Use Status: Never used Tobacco Smoked in Last 30 Days: No Use of substances other than those prescribed or required for medical reasons: Yes Substance Use Type: Marijuana Advance Directives: No Advance Directives Information Provided: No Do you have a plan to hurt others: No Plan Physical Exam ED Vital Signs: Vital Signs - 24 hr 11/08/23 08:53 11/08/23 09:11 11/08/23 09:50 Temperature 99 F 98.4 F Pulse Rate 119 H 115 H 102 H Respiratory Rate 22 H 20 23 H Blood Pressure 123/78 117/73 140/84 H Pulse Oximetry 89 L 94 92 Oxygen Delivery Method Room Air Nasal Cannula Nasal Cannula Oxygen Flow Rate 2 2 11/08/23 11:58 11/08/23 12:19 Temperature 97.8 F Pulse Rate 83 73 Respiratory Rate 20 16 Blood Pressure 100/68 112/67 Pulse Oximetry 94 95 Oxygen Delivery Method Room Air Room Air Oxygen Flow Rate BMI result Body Mass Index 31.9 Const General: cooperative, no acute distress, alert and awake Nutritional Appearance: well nourished Orientation/consciousness: patient oriented x3 Limitations: no limitations HENMT Head: Yes normal to inspection and Yes atraumatic Ears: hearing grossly normal bilaterally and external ears normal General nose exam: Normal external nose present, no nasal discharge noted and no epistaxis Face and sinus: Yes normal facial exam, No abrasion and No laceration Mouth: Normal oral and palatal mucosa present, no drooling and no muffled voice Throat: Yes abnormal tonsil (bilateral swelling) and Yes uvular edema Eyes General: appearance normal, both eyes and all related structures Periorbital: periorbital findings normal Eyelids: Yes eyelids normal Conjunctivae: conjunctivae normal Pupils: Equal, round and reactive pupils present EOM: EOMs intact bilaterally Neck Neck: Yes normal visual inspection, Yes full ROM and Yes no lymphadenopathy Chest Chest palpation & inspection: normal inspection of the chest Resp Effort & Inspection: normal respiratory effort and able to speak in complete sentences GI Inspection: Yes normal to inspection Neuro General: patient oriented x3 and moves all extremities Cranial nerves: Yes Equal, round and reactive pupils present Cognition (Neuro): normal cognition Extrem General: Yes normal to inspection, Yes full ROM and Yes capillary refill normal Psych Appearance: grossly normal Mental Status: mental status grossly normal Affect: normal affect Attitude: cooperative Thought process: Normal thought process present Thought content: Normal thought content present Insight: Good insight present (Psych) Medications Administered Discontinued Medications Generic Name Dose Route Start Last Admin Trade Name Med PRN Reason Stop Dose Admin Ceftriaxone Sodium 1 gm/ 50 mls @ 100 mls/hr 11/08/23 10:59 11/08/23 11:57 Sodium Chloride IV 11/08/23 11:28 100 mls/hr ONCE ONE Administration Iohexol 65 ml 11/08/23 10:34 11/08/23 10:34 Iohexol 350 Mg/Ml 100 Ml Infus..Btl IV 11/08/23 10:35 65 ml ONCE ONE Administration Methylprednisolone Sodium Succinate 60 mg 11/08/23 09:07 11/08/23 09:46 Methylprednisolone Sod Succ 125 Mg/2 Ml Vial IVPUSH 11/08/23 09:08 60 mg ONCE ONE Administration Medical Decision Making Medical Decision Making MDM Narrative: Patient is a 48 year old assigned male at with no reported medical history presenting to the emergency department today with a sore throat and shortness of breath. Patient's physical exam was as noted in the physical exam portion of this note. Patient's blood work was unremarkable. Patient's urine showed no acute process. Patient's EKG was unremarkable. Patient's CT chest PE study showed no acute process. Patient's CT soft tissue neck showed evidence of uvulitis. Patient's strep test was positive. I explained my physical exam findings as well as all test results to the patient. I answered all questions asked by the patient. Patient was 95% on RA. Patient fell asleep while in the department and appeared to have episodes of apnea consistent with MICHELE. Patient states that he was told he has issues with this before but has not followed up on it. I stressed the importance of the patient taking his medication as directed (either prescribed or as the over the counter packaging recommends). I stressed the importance of the patient following up with his primary care provider. I stressed the importance of the patient returning to the emergency department immediately if his symptoms were to worsen or if he were to develop any dizziness, shortness of breath, difficulty breathing, chest pain, blurry vision, loss of vision, nausea, vomiting, abdominal pain, fever, chills, back pain, or any other complaints. Patient verbalized agreement and understanding with this treatment plan and discharge. Differential Diagnosis Differential Diagnoses: The differential diagnosis associated with the presentation includes Pulmonary embolism Strep pharyngitis COVID-19 Influenza RSV Hypoxia PNA Admission/Observation Consideration of admission/observation: Escalation of care including admission/observation considered Patient would have been admitted to the hospital had his work up had any findings where hospital admission was appropriate and his clinical presentation warranted hospital admission. Lab Data [facility] Lab Attestation statement: I reviewed the patient's lab results. My interpretation of these results are in the [facility] Rationale portion of this note. 11/08/23 09:37 11/08/23 09:37 Labs: Lab Results 11/08/23 11/08/23 11/08/23 Range/Units 09:37 10:00 11:15 WBC 6.0 (4.8-10.8) X10*3/uL RBC 4.52 L (4.60-5.80) X10*6/uL Hgb 14.8 (14.0-18.0) g/dl Hct 41.3 L (42.0-52.0) % MCV 91.4 (80.0-98.0) fL MCH 32.7 (27.0-33.0) pg MCHC 35.8 (31.0-36.0) g/dl RDW 12.8 (11.0-16.0) % Plt Count 202 (160-400) X10*3/uL MPV 8.6 L (9.4-12.4) fL Immature Gran % (Auto) 0.7 H (0.0-0.4) % Neut % (Auto) 45.9 (45-73) % Lymph % (Auto) 43.0 H (20-40) % [place] % (Auto) 6.9 (2-11) % Eos % (Auto) 3.2 (0-4) % Baso % (Auto) 0.3 (0-2) % Lymph # (Auto) 2.6 (1.2-4.9) X10*3/uL [place] # (Auto) 0.4 (0.1-1.2) X10*3/uL Eos # (Auto) 0.2 (0.0-0.4) X10*3/uL Baso # (Auto) 0.0 (0.0-0.2) X10*3/uL Abs Immat Gran (auto) 0.04 H (0.00-0.03) X10*3/uL Absolute Neuts (auto) 2.7 (2.0-8.3) x10*3/uL Absolute Nucleated RBC 0.000 (0.0-0.012) X10*3/uL Nucleated RBC % (auto) 0.0 (0.0-0.2) /100WBC PT 11.8 (11.1-13.3) SEC INR 1.0 (0.9-1.1) APTT 29.7 (26.0-36.8) SEC Sodium 140 (135-145) mmol/L Potassium 3.5 (3.3-5.1) mmol/L Chloride 107 (96-108) mmol/L Carbon Dioxide 26 (22-29) mmol/L Anion Gap 11 L (12-20) BUN 7 L (9-16) mg/dL Creatinine 0.90 (0.5-1.4) mg/dL Estim Creat Clear Calc 113.5 Estimated GFR > 60 Random Glucose 138 H (60-115) mg/dL Calcium 8.7 (8.4-10.2) mg/dL Magnesium 1.9 (1.6-2.6) mg/dL Total Bilirubin 0.5 (0.0-1.0) mg/dL AST 86 H (5-37) U/L ALT 125 H (0-40) U/L Alkaline Phosphatase 117 (39-117) U/L Troponin I High Sens 4.0 (<3.5-35.0) ng/L B-Natriuretic Peptide < 10 (<100) pg/mL Total Protein 6.9 (6.5-8.0) g/dL Albumin 4.0 (3.5-5.0) g/dL Urine Color Yellow Urine Appearance Clear Urine pH 6.0 (5.0-9.0) Ur Specific [place] >= 1.030 H (1.005-1.025) Urine Protein 30 (1+) H (Neg-Trace) mg/dL Urine Glucose (UA) Negative (Negative) mg/dL Urine Ketones Trace (Negative) mg/dL Urine Blood Negative (Negative) Urine Nitrite Negative (Negative) Ur Leukocyte Esterase Negative (Negative) Urine RBC 0-2 (0-2) /HPF Urine WBC 0-5 (0-5) /HPF Ur Squamous Epith Cells 0-2 (0-2) /HPF Urine Bacteria None Seen (None Seen) Hyaline Casts 0-2 (0-2) /LPF Influenza Type A (PCR) NEGATIVE (Negative) Influenza Type B (PCR) NEGATIVE (Negative) RSV RNA Qual (PCR) NEGATIVE (Negative) SARS-CoV-2 RNA (RT-PCR) NEGATIVE (Negative) S. pyogenes GrpA MAURY Positive A (Negative) Independent Interpretation I performed an independent interpretation of an: EKG and CT Scan Interpretation: My interpretation is in agreement with the radiologist's impression of these imaging studies. EXAMINATION: CT SOFT TISSUE NECK WITH CONTRAST CLINICAL INFORMATION: Shortness of breath. COMPARISON: None available. TECHNIQUE: Following the intravenous administration of 85 mL of Omnipaque 350 intravenous contrast, helical imaging was performed in the axial plane with generation of coronal and sagittal reformatted images. This CT examination was performed using dose optimization techniques as appropriate, variously including the following: *Automated exposure control *Adjustment of mA and/or kV according to patient size (this includes techniques or standardized protocols for targeted exams where dose is matched to indication/reason for exam; i.e. extremities or head) *Use of iterative reconstruction technique DLP: 1174.16 mGy-cm FINDINGS: No cervical adenopathy is identified. The parotid glands are homogeneous in attenuation. The submandibular glands are normal. No contour abnormality or pathologic enhancement is seen within the oral cavity or pharyngeal mucosal space. There is enlargement of the uvula as seen on sagittal and axial images. The laryngeal structures are normal. The parapharyngeal fat is preserved. The carotid sheath vasculature opacify normally. No extra mucosal soft tissue mass or fluid collection is seen. No retropharyngeal fluid collection is seen. The thyroid gland is normal. The superior mediastinum is unremarkable. The lung apices are clear. The mastoid air cells and visualized portions of the paranasal sinuses are well-aerated. The temporomandibular joints are normal. No periapical disease is identified. No osseous abnormalities are seen. Minimal multilevel degenerative disc disease in the cervical spine. The imaged portions of the brain parenchyma are unremarkable. CT/CT soft tissue neck w IV con IMPRESSION: Enlargement of the uvula. Recommend visual correlation for uvulitis. Otherwise no acute findings in the neck. Dictated By: Bg Jean-Baptiste MD Signed By: Electronically signed by Bg Jean-Baptiste MD 11/08/23 1100 EXAMINATION: CT ANGIOGRAM OF THE CHEST WITH AND WITHOUT CONTRAST (CT PULMONARY ANGIOGRAM FOR PE) CLINICAL INFORMATION: Reason for Exam SOB, recent travel, concern for PE COMPARISON: 02/28/2021 TECHNIQUE: Prior to contrast administration, noncontrast localization images were obtained. Subsequently, multidetector volumetric imaging was performed from the thoracic inlet to below the diaphragms following the administration of 85 mL Omnipaque 350 intravenous contrast. No contrast reaction reported Sagittal, coronal, and MIP oblique sagittal reformatted images were obtained on the CT workstation, uploaded to PACS, and reviewed. This CT examination was performed using dose optimization techniques as appropriate, variously including the following: *Automated exposure control *Adjustment of mA and/or kV according to patient size (this includes techniques or standardized protocols for targeted exams where dose is matched to indication/reason for exam; i.e. extremities or head) *Use of iterative reconstruction technique Total exam dose-length product 1174 mGy-cm FINDINGS: QUALITY OF STUDY/CONTRAST BOLUS: Satisfactory. PULMONARY ARTERIES: No pulmonary emboli to the proximal subsegmental level. THORACIC AORTA: No aneurysm or dissection. LUNG: Mild dependent atelectasis. No airspace consolidation. Central airways are clear. No suspicious pulmonary nodules PLEURA: No pleural effusion or pneumothorax. MEDIASTINUM: Normal heart size. No pericardial effusion. No hilar or mediastinal lymphadenopathy. No evidence of septal bowing or right heart strain. CORONARY ARTERY CALCIFICATION: None visualized on this study. CHEST WALL/AXILLA: No axillary or internal mammary lymphadenopathy. OSSEOUS STRUCTURES: Mild degenerative disc disease midthoracic spine. No fracture or malalignment. UPPER ABDOMEN: Hepatic steatosis. No reflux of contrast into the hepatic veins to suggest elevated right heart pressures. CT/CT angio chest PE protocol IMPRESSION: 1. No evidence of pulmonary emboli to the proximal subsegmental level. 2. No acute pulmonary findings. 3. Hepatic steatosis. VTE: negative. Dictated By: Bg Jean-Baptiste MD Signed By: Electronically signed by Bg Jean-Baptiste MD 11/08/23 1049 Vent. Rate: 109 BPM Atrial Rate: 109 BPM P-R Int: 158 ms QRS Dur: 090 ms QT Int: 336 ms P-R-T Axes: 030 -23 -15 degrees QTc Int: 452 ms Sinus tachycardia Minimal voltage criteria for LVH, may be normal variant (R in aVL) Borderline ECG When compared with ECG of 02-MAY-2023 18:39, ST now depressed in Inferior leads Electronically Signed By:MIHIR PINTO MD Dictated By: Mihir Pinto MD Signed By: Electronically signed by Mihir Pinto MD 11/08/23 1115 Radiology Impression Discussion of test interpretation with radiology: I have reviewed the radiologist's reading. Critical Care Time Critical Care Time Critical Care Time: Yes Total Critical Care Time: 39 Attestation: I spent 39 minutes of Critical Care Time with this patient. This does not include time spent on separately reported billable procedures. Discharge Plan Discharge Clinical Impression: Strep pharyngitis Patient Disposition: Home, Self-Care Instructions: Strep Throat (DC) Additional Instructions: Take your antibiotic as prescribed. Follow up with your primary care provider. Return to the emergency department immediately if your symptoms worsen or if you develop any dizziness, shortness of breath, difficulty breathing, chest pain, blurry vision, loss of vision, nausea, vomiting, abdominal pain, fever, chills, back pain, or any other complaints. [place] el antibi?yovani radha aliyah se le montiel recetado. Damir un seguimiento con diallo m?dico de cabecera. Acuda inmediatamente al servicio de urgencias si martin s?ntomas empeoran o si presenta mareos, falta de aliento, dificultad para respirar, dolor tor?cico, visi?n borrosa, p?rdida de visi?n, n?useas, v?mitos, dolor abdominal, fiebre, escalofr?os, dolor de espalda o cualquier otra molestia. Prescriptions: New penicillin V potassium 500 mg tablet 500 mg PO BID 10 Days Qty: 20 0RF No Action doxycycline monohydrate 100 mg capsule 100 mg PO BID 10 Days Qty: 20 0RF cephalexin 500 mg capsule 500 mg PO BID 10 Days Qty: 20 0RF oxycodone 5 mg tablet 5 mg PO BID PRN (Reason: pain) Qty: 10 0RF lidocaine 4 % adhesive patch,medicated 1 patch topical DAILY PRN (Reason: pain) Qty: 10 0RF Rx Instructions: may leave on for up to 12 hrs ibuprofen 600 mg tablet 600 mg PO Q6H PRN (Reason: pain) Qty: 30 0RF morphine 15 mg tablet 15 mg PO Q6H PRN (Reason: pain) 3 Days Qty: 12 0RF diazepam [Valium] 5 mg tablet 5 mg PO TID PRN (Reason: muscle spasm) Qty: 12 0RF cyclobenzaprine 10 mg tablet 10 mg PO BEDTIME PRN (Reason: muscle spasm) Qty: 7 0RF naproxen 500 mg tablet 500 mg PO BID PRN (Reason: pain) Qty: 14 0RF Rx Instructions: Take with food loratadine [Claritin] 10 mg tablet 10 mg PO DAILY Qty: 30 0RF fluticasone propionate [Allergy Relief (fluticasone)] 50 mcg/actuation spray,suspension 1 spray intranasal Q12H Qty: 16 0RF Rx Instructions: administer into each nostril hyoscyamine sulfate 0.125 mg tablet 0.125 mg PO QID PRN (Reason: dyspepsia) Qty: 10 0RF prednisone 20 mg tablet 20 mg PO .COMPLEX Qty: 18 0RF Rx Instructions: 20 mg PO 3 p.o. daily for 3 days followed by 2 p.o. daily for 3 days followed by 1 p.o. daily for 3 days; amoxicillin-pot clavulanate [Augmentin] 875-125 mg tablet 1 tab PO BID Qty: 20 0RF Referrals: [facility] [facility] [Provider Group] (Call to establish and follow up with a primary care provider. If you already have a primary care provider, please follow up with them.) [facility] [place] [facility] [[facility]] [facility] [[facility] Group] Print Language: Slovenian
--- NOTE | 2023-11-08 09:04 | ECG_ITS ---
Test Reason : SOB Blood Pressure : / mmHG Vent. Rate : 109 BPM Atrial Rate : 109 BPM P-R Int : 158 ms QRS Dur : 090 ms QT Int : 336 ms P-R-T Axes : 030 -23 -15 degrees QTc Int : 452 ms Sinus tachycardia Minimal voltage criteria for LVH, may be normal variant ( R in aVL ) Borderline ECG When compared with ECG of 02-MAY-2023 18:39, ST now depressed in Inferior leads Referred By: Amna Sánchez Electronically Signed By:ALISA PINTO MD
[2023-11-08 09:11] VITALS: BP 117/73; PULSE 115; RESP 20; TEMP 36.9; O2SAT 94
[2023-11-08 09:41] LABS: MANUAL DIFF FLAG NO
[2023-11-08 09:42] LABS: Basophils Percent Auto 0.3 % (0-2); Eosinophils Absolute Auto 0.2 X10*3/uL (0.0-0.4); Eosinophils Percent Auto 3.2 % (0-4); Hematocrit 41.3 % (42.0-52.0); Hemoglobin 14.8 g/dl (14.0-18.0); Imm Gran Abs Auto 0.04 X10*3/uL (0.00-0.03); Imm Gran Pct Auto 0.7 % (0.0-0.4); Lymphocytes Absolute Auto 2.6 X10*3/uL (1.2-4.9); Mean Corpuscular HGB Conc 35.8 g/dl (31.0-36.0); Mean Corpuscular Hemoglobin 32.7 pg (27.0-33.0); Mean Corpuscular Volume 91.4 fL (80.0-98.0); Mean Platelet Volume 8.6 fL (9.4-12.4); Monocytes Absolute Auto 0.4 X10*3/uL (0.1-1.2); Monocytes Percent Auto 6.9 % (2-11); Neutrophils Absolute Auto 2.7 x10*3/uL (2.0-8.3); Neutrophils Percent Auto 45.9 % (45-73); Platelet Count 202 X10*3/uL (160-400); Red Blood Count 4.52 X10*6/uL (4.60-5.80); Red Cell Distribution Width 12.8 % (11.0-16.0)
[2023-11-08] MEDS: methylPREDNISolone Sod Succ 125 MG/2 ML VIAL 60 MG IVPUSH (09:46)
[2023-11-08 09:47] LABS: Prothrombin Time 11.8 SEC (11.1-13.3)
[2023-11-08 09:49] LABS: Partial Thromboplastin Time 29.7 SEC (26.0-36.8)
[2023-11-08 09:50] VITALS: BP 140/84; PULSE 102; RESP 23; O2SAT 92
[2023-11-08 09:56] LABS: Alanine Aminotransferase 125 U/L (0-40); Alkaline Phosphatase 117 U/L (39-117); Anion Gap 11 (12-20); Aspartate Amino Transferase 86 U/L (5-37); Bilirubin Total 0.5 mg/dL (0.0-1.0); Blood Urea Nitrogen 7 mg/dL (9-16); Calcium 8.7 mg/dL (8.4-10.2); Carbon Dioxide 26 mmol/L (22-29); Chloride 107 mmol/L (96-108); Creatinine Clr Calc Pharmacy 113.5; Estimated Glomerular Filt Rate > 60; Glucose Random 138 mg/dL (60-115); Magnesium 1.9 mg/dL (1.6-2.6); Potassium 3.5 mmol/L (3.3-5.1); Sodium 140 mmol/L (135-145); Total Protein 6.9 g/dL (6.5-8.0)
[2023-11-08 10:03] LABS: B Type Natriuretic Peptide < 10 pg/mL (<100)
[2023-11-08 10:18] LABS: IDNOW Serial# 6674DD1D
[2023-11-08 10:19] LABS: Strep A Nucleic Acid Positive (Negative)
[2023-11-08] MEDS: iohexoL 350 MG/ML 100 ML INFUS..BTL 65 ML IV (10:34)
[2023-11-08 10:44] LABS: Influenza A PCR NEGATIVE (Negative); Influenza B PCR NEGATIVE (Negative); Resp Syncy Virus RNA Qual PCR NEGATIVE (Negative); SARS COV2 PCR INHOUSE NEGATIVE (Negative)
[2023-11-08 11:21] LABS: Appearance Urine Clear; Color Urine Yellow; Glucose Urine UA Negative (Negative); Leukocyte Esterase Urine Negative (Negative); Nitrite Urine Negative (Negative); Specific Gravity - Urine >= 1.030 (1.005-1.025); UMIC TRIGGER UACC YES; Urine Blood Negative (Negative); Urine Ketones Trace mg/dL (Negative); Urine Protein 30 (1+) mg/dL (Neg-Trace)
[2023-11-08 11:23] LABS: Bacteria Urine None Seen (None Seen); Hyaline Casts Urine 0-2 /LPF (0-2); RBC Urine 0-2 /HPF (0-2); Squamous Epithelial Cell Urine 0-2 /HPF (0-2); WBC Urine 0-5 /HPF (0-5)
[2023-11-08] MEDS: cefTRIAXone sodium 1 GM in 0.9 % Sodium Chloride 50 ML IV (11:57)
[2023-11-08 11:58] VITALS: BP 100/68; PULSE 83; RESP 20; O2SAT 94
--- NOTE | 2023-11-08 11:59 | PC.NURSE ---
pt sleeping, o2 is off, has sleep apnea but maintains 90-93 ra, mwedicated as ordered, skin wpd
[2023-11-08 12:19] VITALS: BP 112/67; PULSE 73; RESP 16; TEMP 36.6; O2SAT 95
== END 2023-11-08 13:59 | disposition home or self-care (01) ==
PROVIDERS: Physician Assistant Medical; Emergency Provider Emergency Medicine
DX: J02.0 Streptococcal pharyngitis (principal); R06.00 Dyspnea, unspecified; R00.0 Tachycardia, unspecified; K13.79 Other lesions of oral mucosa; J02.9 Acute pharyngitis, unspecified; R06.02 Shortness of breath; Z03.818 Encounter for observation for suspected exposure to other biological agents ruled out; Z79.899 Other long term (current) drug therapy
CPT/HCPCS: 0241U; 36415; 70491; 71275; 80053; 81001; 83735; 83880; 84484; 85025; 85610; 85730; 87651; 93005; 96365; 96375; 99284; 99285; J0696; J2919; Q9967

== ENCOUNTER → 2023-11-08 09:04 | Outpatient (BNV) | payer SELFPAY | PROVIDERS: Emergency Provider Emergency Medicine; Visit Provider Internal Medicine Cardiovascular Disease | DX: R06.02 Shortness of breath (principal); R00.0 Tachycardia, unspecified; R94.31 Abnormal electrocardiogram [ECG] [EKG] | CPT/HCPCS: 93010 ==

== ENCOUNTER 2024-06-23 20:19 | Emergency (ER) | payer MEDICAID, SELFPAY ==
--- NOTE | ~2024-06-23 | XR_ITS ---
CLINICAL HISTORY: left knee pain 4 view left knee Comparison: None Findings: No fractures or dislocations. No significant loss of joint space, osteophytes, or erosions. No joint effusion. No radiopaque foreign body. IMPRESSION: 1. No acute findings. This document has been electronically signed by: Domenic Johnson MD on 06/23/2024 21:02:55
[2024-06-23 20:26] VITALS: BP 142/86; PULSE 94; RESP 20; TEMP 36.6; O2SAT 96; BMI 33.4
--- NOTE | 2024-06-23 20:33 | ED.GENADULT ---
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 patient has seen orthopedics about 3 years ago who advised knee replacement no significant swelling of the knee no fever Related Data Previous Rx's ?Medication ?Instructions ?Recorded amoxicillin 875 mg-potassium 1 tab PO BID #20 tabs 07/02/20 clavulanate 125 mg tablet (Augmentin) prednisone 20 mg tablet 20 mg PO .COMPLEX #18 tabs 07/02/20 cephalexin 500 mg capsule 500 mg PO BID 10 days #20 caps 07/05/20 doxycycline monohydrate 100 mg 100 mg PO BID 10 days #20 caps 07/05/20 capsule oxycodone 5 mg tablet 5 mg PO BID PRN pain #10 tabs 07/05/20 diazepam 5 mg tablet (Valium) 5 mg PO TID PRN muscle spasm #12 03/01/21 tabs ibuprofen 600 mg tablet 600 mg PO Q6H PRN pain #30 tabs 03/01/21 lidocaine 4 % topical patch 1 patch topical DAILY PRN pain #10 03/01/21 ea morphine 15 mg immediate release 15 mg PO Q6H PRN pain 3 days #12 03/01/21 tablet tabs cyclobenzaprine 10 mg tablet 10 mg PO BEDTIME PRN muscle spasm 06/12/21 #7 tabs naproxen 500 mg tablet 500 mg PO BID PRN pain #14 tabs 06/12/21 fluticasone propionate 50 1 spray intranasal Q12H #16 grams 05/02/23 mcg/actuation nasal spray,suspension (Allergy Relief (fluticasone)) loratadine 10 mg tablet (Claritin) 10 mg PO DAILY #30 tabs 05/02/23 hyoscyamine sulfate 0.125 mg tablet 0.125 mg PO QID PRN dyspepsia #10 08/26/23 tabs penicillin V potassium 500 mg 500 mg PO BID 10 days #20 tabs 11/08/23 tablet ibuprofen 600 mg tablet 600 mg PO Q6H PRN fever or pain 06/24/24 #30 tabs oxycodone 5 mg tablet 5 mg PO Q6H PRN pain #20 tabs 06/24/24 Allergies Allergy/AdvReac Type Severity Reaction Status Date / Time No Known Allergies Allergy Verified 06/23/24 20:29 Review of Systems Review of Systems: Yes all other systems are reviewed and are negative FOR[facility]LY [facility] Past Medical History Medical History No pertinent past medical history Social History Social History Alcohol intake: current Alcohol intake frequency: holidays/special occasions only Alcohol type: beer Patient Tobacco Use Status: Never used Tobacco Smoked in Last 30 Days: No Use of substances other than those prescribed or required for medical reasons: No Substance Use Type: Marijuana Advance Directives: No Advance Directives Information Provided: Yes Physical Exam ED Vital Signs: Vital Signs - 24 hr 06/23/24 20:26 06/24/24 02:13 06/24/24 03:07 Temperature 97.9 F 97.6 F 97.6 F Pulse Rate 94 73 73 Respiratory Rate 20 18 18 Blood Pressure 142/86 H 140/89 H 140/89 H Pulse Oximetry 96 98 98 Oxygen Delivery Method Room Air Room Air Room Air BMI result Body Mass Index 33.4 Appearance: Alert. Oriented X3. No acute distress. Eyes: No pallor or icterus ENT: Pharynx normal. Oral Mucosa moist Neck: Normal inspection. Neck supple. CVS: Normal heart rate and rhythm. Pulses normal. Respiratory: No respiratory distress. Equal air entry bilateral, no wheezing/rales/rhonchi Abdomen: Soft and nontender. Bowel sounds are present, no mass palpable, no CVA tenderness Skin: Skin warm and dry. Normal skin color. Normal skin turgor. Extremities: No lower extremity edema. No calf tenderness left knee with diffuse arthritic changes anterior drawer and John sign negative no significant effusion Neuro: Oriented X 3. No motor deficit. No sensory deficit.No cerebellar signs , cranial nerves II-XII intact Course Course Course Narrative: This is an RME done by EDGAR Lyon: Additional HPI, ROS, PE not included below will be deferred to primary provider. 49-year-old male presents with atraumatic left knee pain for the past 3 weeks worsening for the past few days. Patient reports pain is worse with movement better at rest. 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 Denies numbness or tingling. Tried Tylenol prior to arrival with no improvement of symptoms. On exam patient is bending his left knee, ambulatory into triage without difficulty plan x-ray of left knee Medications Administered Discontinued Medications Generic Name Dose Route Start Last Admin Trade Name Freq PRN Reason Stop Dose Admin Ketorolac Tromethamine 30 mg 06/23/24 20:30 06/24/24 02:02 Ketorolac Tromethamine 30 Mg/Ml Vial IM 06/23/24 20:31 30 mg ONCE ONE Administration Oxycodone HCl 10 mg 06/24/24 02:29 06/24/24 02:37 Oxycodone Hcl Immed Release 5 Mg Tablet PO 06/24/24 02:30 10 mg ONCE ONE Administration Medical Decision Making Medical Decision Making [facility] Narrative: Patient with osteoarthritis of knee advised to follow up with Orthopedic knee immobilizer was given to the patient advised to rest and follow up with orthopedic for further evaluation Independent Interpretation I performed an independent interpretation of an: Plain X-Ray Radiology Impression Discussion of test interpretation with radiology: I have reviewed the radiologist's reading. Radiologist Impression: NAD Discharge Plan Discharge Clinical Impression: Osteoarthritis of left knee Patient Disposition: Home, Self-Care Instructions: Osteoarthritis (ED) Additional Instructions: Rest your left knee Use knee immobilizer for support Pain medication as prescribed Follow up with Orthopedics Prescriptions: New ibuprofen 600 mg tablet 600 mg PO Q6H PRN (Reason: fever or pain) Qty: 30 0RF oxycodone 5 mg tablet 5 mg PO Q6H PRN (Reason: pain) Qty: 20 0RF Rx Instructions: Partial Fill upon patient request. No Action doxycycline monohydrate 100 mg capsule 100 mg PO BID 10 Days Qty: 20 0RF cephalexin 500 mg capsule 500 mg PO BID 10 Days Qty: 20 0RF oxycodone 5 mg tablet 5 mg PO BID PRN (Reason: pain) Qty: 10 0RF lidocaine 4 % adhesive patch,medicated 1 patch topical DAILY PRN (Reason: pain) Qty: 10 0RF Rx Instructions: may leave on for up to 12 hrs ibuprofen 600 mg tablet 600 mg PO Q6H PRN (Reason: pain) Qty: 30 0RF morphine 15 mg tablet 15 mg PO Q6H PRN (Reason: pain) 3 Days Qty: 12 0RF diazepam [Valium] 5 mg tablet 5 mg PO TID PRN (Reason: muscle spasm) Qty: 12 0RF cyclobenzaprine 10 mg tablet 10 mg PO BEDTIME PRN (Reason: muscle spasm) Qty: 7 0RF naproxen 500 mg tablet 500 mg PO BID PRN (Reason: pain) Qty: 14 0RF Rx Instructions: Take with food loratadine [Claritin] 10 mg tablet 10 mg PO DAILY Qty: 30 0RF fluticasone propionate [Allergy Relief (fluticasone)] 50 mcg/actuation spray,suspension 1 spray intranasal Q12H Qty: 16 0RF Rx Instructions: administer into each nostril hyoscyamine sulfate 0.125 mg tablet 0.125 mg PO QID PRN (Reason: dyspepsia) Qty: 10 0RF penicillin V potassium 500 mg tablet 500 mg PO BID 10 Days Qty: 20 0RF prednisone 20 mg tablet 20 mg PO .COMPLEX Qty: 18 0RF Rx Instructions: 20 mg PO 3 p.o. daily for 3 days followed by 2 p.o. daily for 3 days followed by 1 p.o. daily for 3 days; amoxicillin-pot clavulanate [Augmentin] 875-125 mg tablet 1 tab PO BID Qty: 20 0RF Referrals: Gibran Bryson MD [Physician] - 2 weeks Interventions: ED Discharge Assessment Last Done: 06/24/24 03:07 Discharge Date/Time: 06/24/24 03:07 Print Language: Nigerien
[2024-06-24] MEDS: Ketorolac Tromethamine 30 MG/ML VIAL IM (02:02)
--- NOTE | 2024-06-24 02:05 | PC.NURSE ---
Medicated per mar,
[2024-06-24 02:13] VITALS: BP 140/89; PULSE 73; RESP 18; TEMP 36.4; O2SAT 98
[2024-06-24] MEDS: oxyCODONE HCl Immed Release 5 MG TABLET 10 MG PO (02:37)
--- NOTE | 2024-06-24 02:41 | PC.NURSE ---
Provider into assess pt, medicated per mar. knee immobilizer placed.
--- NOTE | 2024-06-24 03:05 | PC.NURSE ---
Pt was proficient in demonstration of using crutches, Reviewed discharge instructions with pt. pt verbalized understanding, no sign of distress upon discharge
[2024-06-24 03:07] VITALS: BP 140/89; PULSE 73; RESP 18; TEMP 36.4; O2SAT 98
== END 2024-06-24 03:07 | disposition home or self-care (01) ==
PROVIDERS: Emergency Provider Internal Medicine
DX: M17.12 Unilateral primary osteoarthritis, left knee (principal); M25.562 Pain in left knee; Z79.899 Other long term (current) drug therapy
CPT/HCPCS: 73564; 96372; 99284; J1885

== ENCOUNTER → 2024-06-23 20:30 | Outpatient (BNV) | payer MEDICAID, SELFPAY | PROVIDERS: Visit Provider Student in an Organized Health Care Education/Training Program | DX: M25.562 Pain in left knee (principal) | CPT/HCPCS: 73564 ==

== ENCOUNTER 2024-08-24 08:34 | Outpatient (REF) | payer MEDICAID, SELFPAY | END 2024-08-24 08:35 | disposition home or self-care (01) | LOC: HO.HOSX 08:34 | PROVIDERS: Visit Provider Physician Assistant | DX: Z13.89 Encounter for screening for other disorder (principal) ==